=== PATIENT | male | born 1975 | race Two or more races ===

== ENCOUNTER 2020-08-04 15:17 | Inpatient (IN) | payer OTHER ==
[~2020-08-04] VITALS: Ht 198.1 cm; Wt 62.6 kg
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
[2020-08-04 18:00] VITALS: BP 126/90
[2020-08-04] MEDS ORDERED: MAGN400O6 GT (19:20)
[2020-08-04] MEDS ORDERED: POLY15DR40 EACHEYE (19:20)
[2020-08-04] MEDS ORDERED: FAMO20TA8 GT (19:20)
[2020-08-04] MEDS ORDERED: ARFO15VI IH (19:20)
[2020-08-04] MEDS ORDERED: IBUP-1955 GT (19:20)
[2020-08-04] MEDS ORDERED: MELA3TAB41 GT (19:20)
[2020-08-04] MEDS ORDERED: DOCU50LI GT (19:20)
[2020-08-04] MEDS ORDERED: ENOX30DI5 SQ (19:20)
[2020-08-04] MEDS ORDERED: ACET100V4 INH (19:20)
[2020-08-04] MEDS ORDERED: OXYC5CAP18 GT (19:20)
[2020-08-04] MEDS ORDERED: BUDE0.5A4 IH (19:20)
[2020-08-04] MEDS ORDERED: IPRA3AMP23 IH (19:20)
[2020-08-04] MEDS ORDERED: ACET650S26 GT (19:20)
[2020-08-04] MEDS ORDERED: HYDR-4075 GT (19:20)
[2020-08-04] MEDS ORDERED: NALO0.4D4 IV (19:20)
[2020-08-04] MEDS ORDERED: LACT100027 GT (19:22)
[2020-08-04] MEDS ORDERED: PNEUMOCOCCAL 23-VAL P-SAC VAC 0.5 ML VIAL IM ONE (19:30)
[2020-08-04] MEDS ORDERED: JEVITY 1.2 CAL 1,000 ML BOTTLE NG PRN (19:30)
--- NOTE | 2020-08-04 19:45 | NUR ---
RN NOTES Received new orders from Dr. Arita noted and carried out.
[2020-08-04] MEDS ORDERED: POLYVINYL ALCOHOL 15 ML BOTTLE EACHEYE PRN (20:00)
[2020-08-04] MEDS ORDERED: hydrALAZINE HCL 10 MG TABLET GT PRN (20:00)
[2020-08-04] MEDS ORDERED: NALOXONE HCL 0.4 MG/ML AMPUL IV PRN (20:00)
[2020-08-04] MEDS ORDERED: MAGNESIUM HYDROXIDE 30 ML UDC GT PRN (20:00)
[2020-08-04] MEDS ORDERED: ACETAMINOPHEN 650 MG/20 ML UDC- SA PATIENTS-PAIN ONLY GT PRN (20:00)
[2020-08-04] MEDS ORDERED: IBUPROFEN SUSP 100 MG/5 ML UDC-SA PATIENTS-PAIN ONLY GT PRN (20:00)
[2020-08-04] MEDS ORDERED: ACETAMINOPHEN 650 MG/20 ML UDC- SA PATIENTS-FEVER ONLY GT PRN (20:00)
[2020-08-04] MEDS ORDERED: FAMOTIDINE/PF INJ 20 MG/2 ML VIAL IV SCH (21:00)
[2020-08-04] MEDS ORDERED: oxyCODONE IR immediate release 5 MG ONE (21:13)
[2020-08-04] MEDS: FAMOTIDINE (20 MG) 20 MG TABLET GT SCH (21:14)
[2020-08-04] MEDS: ENOXAPARIN SODIUM 40 MG/0.4 ML DISP.SYRIN SQ SCH (21:17)
[2020-08-04] MEDS: oxyCODONE IR immediate release 5 MG GT PRN ×2 (21:18→22:40)
[2020-08-04] MEDS: HYDROGEN PEROXIDE 480 ML BOTTLE TP SCH (21:50)
[2020-08-04] MEDS: ACETYLCYSTEINE 10% SOLN 400 MG/4 ML VIAL HHN SCH (23:49)
[2020-08-05 00:52] VITALS: BP 126/76
[2020-08-05] MEDS: ACETYLCYSTEINE 10% SOLN 400 MG/4 ML VIAL HHN SCH ×5 (03:52→20:28)
--- NOTE | 2020-08-05 06:43 | NUR ---
PT RECEIVED TRACHED W/ PORTEX 7 CUFFED. CUFF DEFLATED. TRACH PATENT AND SECURE. NO SOB OR DISTRESS NOTED ON SHIFT. PMV WAS ON AT START OF SHIFT BUT WAS REMOVED DUE TO NO STANDING ORDERS. ELECTROPLATER APPRENTICE MADE AWARE. CONTINUE CURRENT CARE PLAN AND MONITOR FOR ANY CHANGES. Addendum: 08/05/20 at 0646 by MIRTA WEST RT Amended: Links added.
[2020-08-05 08:03] VITALS: BP 111/80
[2020-08-05] MEDS: BUDESONIDE RESPULE INH 0.5 MG/2 ML AMPUL.NEB NEB SCH ×2 (08:20→20:27)
[2020-08-05] MEDS ORDERED: TUBERCULIN,PURIF.PROT.DERIV. 5 TU/0.1 ML VIAL ID SCH (09:00)
[2020-08-05] MEDS: DOCUSATE SODIUM LIQ 100 MG/10 ML UDC GT SCH ×2 (09:00→16:55)
[2020-08-05] MEDS: HYDROGEN PEROXIDE 480 ML BOTTLE TP SCH ×2 (09:00→21:11)
[2020-08-05] MEDS: FAMOTIDINE (20 MG) 20 MG TABLET GT SCH ×2 (09:00→21:08)
--- NOTE | 2020-08-05 10:30 | NUR ---
Seen by Dr Arita. He spoke with pt's sister via pt's personal cellular phone. Dr Arita said to call Dr William Miller (oral and maxillofacial dentist) to ask if pt needs to come to his office for an appointment. Notified MAVIS Hernandez. Also asked her to call Dr Casey Haskins (orthopedic surgeon).
[2020-08-05] MEDS: oxyCODONE IR immediate release 5 MG GT PRN ×2 (12:40→21:09)
--- NOTE | 2020-08-05 12:48 | NUR ---
PPD injection given on left forearm, lot# [id number], exp 08/06/20, Nirmala Sanofi, pt tolerated well, no bleeding. Patient teaching regarding Gtube care & Gtube medications, all questions and concerns answered.
--- NOTE | 2020-08-05 13:00 | NUR ---
Pt was seen by PT today. PT Will said pt is able to ambulate and sit on a chair. Pt is also able to use the bathroom in his room and clean himself.
[2020-08-05 13:43] VITALS: BP 114/77
[2020-08-05] MEDS ORDERED: NALOXONE HCL 0.4 MG/ML AMPUL IV PRN (14:23)
[2020-08-05] MEDS ORDERED: HYDROGEN PEROXIDE 480 ML BOTTLE TP PRN (14:30)
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
--- NOTE | 2020-08-05 17:01 | NUR ---
Asked pt if he has received the flu and pneumo vaccines. According to him he received the flu vaccine in May 2020, but cannot remember the exact date. Provided him a reading material about the pneumococcal vaccine and he refused to receive it. Offered him the Covid-19 vaccine and provided him a reading material. Also discussed possible side effects with him and number of doses. Pt will think about it.
[2020-08-05] MEDS: ACETAMINOPHEN 650 MG/20 ML UDC- SA PATIENTS-PAIN ONLY GT SCH ×2 (17:28→23:34)
[2020-08-05 20:08] VITALS: BP 119/79
[2020-08-05] MEDS: ENOXAPARIN SODIUM 40 MG/0.4 ML DISP.SYRIN SQ SCH (21:08)
[2020-08-06 01:20] VITALS: BP 117/86
[2020-08-06] MEDS: ACETAMINOPHEN 650 MG/20 ML UDC- SA PATIENTS-PAIN ONLY GT SCH ×4 (06:05→23:44)
[2020-08-06 07:44] VITALS: BP 109/70
[2020-08-06] MEDS: BUDESONIDE RESPULE INH 0.5 MG/2 ML AMPUL.NEB NEB SCH ×2 (08:10→20:14)
[2020-08-06] MEDS: ACETYLCYSTEINE 10% SOLN 400 MG/4 ML VIAL HHN SCH ×3 (08:10→20:14)
[2020-08-06] MEDS: HYDROGEN PEROXIDE 480 ML BOTTLE TP SCH ×2 (09:00→21:27)
[2020-08-06] MEDS: DOCUSATE SODIUM LIQ 100 MG/10 ML UDC GT SCH ×2 (09:00→17:00)
[2020-08-06] MEDS: FAMOTIDINE (20 MG) 20 MG TABLET GT SCH ×2 (09:00→20:24)
--- NOTE | 2020-08-06 10:39 | NUR ---
MAVIS mailed intake paperwork to pt.'s responsible republican/sister, Daniel Morel at [[address] [facility] [address]]. Family to complete paperwork & mail back to MAVIS with prepaid envelope provided.
[2020-08-06 13:24] VITALS: BP 114/76
--- NOTE | 2020-08-06 14:58 | NUR ---
RT NOTE PATIENT EDUCATED PER RT WITH THE FOLLOWING: TRACH MAINTNENCE TRACH CARE TRACHEAL SUCTIONING PATIENT ACKNOWLEDGED RT EDUCATION. RT MENTIONED TO PT IF THEY HAVE ANY QUESTIONS TO ASK ANY RT ON DAY OR NOC SHIFT.
--- NOTE | 2020-08-06 15:58 | NUR ---
Appointments: ---MAVIS called the office of Dentist, William Miller [phone] to set up an apt. as soon as possible. No answer & MAVIS left call back number. ---MAVIS called the office of Orthopedic surgeon, Casey [phone] to set up follow up apt. for Right arm fracture. No answer & MAVIS left call back number. SW will follow up as needed.
--- NOTE | 2020-08-06 16:23 | NUR ---
COVID-19 Vaccine Information Provided: MAVIS emailed the pt,'s sister, Daniel Mejía < > an informational sheet regarding COVID vaccine & attached link to CDC website for family to gather more info about vaccine. SW will be available as needed.
--- NOTE | 2020-08-06 16:52 | NUR ---
Approached resident and asked if he would like to receive Covid-19 vaccine, he said to ask his sister Daniel. Spoke with patient's sister regarding Covid-19 vaccine, she said that they will make a decision after she talk to him today. Endorsed.
--- NOTE | 2020-08-06 18:45 | NUR ---
Notified Dr. Arita of dietary recommendation to increase GT feeding rate of Jevity 1.2 to 80cc/hr x 20 hours. Patient is tall (6'6") and requires more calorie to meet his BMI. According to his sister patient lost a lot of weight at the hospital because they were not able to insert NGT due to his injuries.
[2020-08-06 19:46] VITALS: BP 109/73
[2020-08-06] MEDS ORDERED: JEVITY 1.2 CAL 1,000 ML BOTTLE NG PRN (20:01)
[2020-08-06] MEDS: PROSOURCE / PROSTAT (PYXIS) 30 ML UDC GT SCH (20:24)
[2020-08-06] MEDS: ENOXAPARIN SODIUM 40 MG/0.4 ML DISP.SYRIN SQ SCH (20:24)
[2020-08-06] MEDS: oxyCODONE IR immediate release 5 MG GT PRN (20:26)
--- NOTE | 2020-08-06 22:38 | NUR ---
Pt education on Aspiration precaution. To keep HOB elevated at all times while feeding is on. If receiving Bolus feeding to sit up right and to not lay down a minimum of 30 mins after feeding to prevent aspiration. Also demonstrated to pt how to disconnect GTF tubing from GT. Pt receptive to demonstration and demonstrated back safely. Also educated pt on safety in transfers from bed. To stand up slowly and sit up first at side of bed to prevent orthostatic hypotention. Pt receptive to teachings.
[2020-08-06 23:58] VITALS: BP 115/85
[2020-08-07] MEDS: ACETAMINOPHEN 650 MG/20 ML UDC- SA PATIENTS-PAIN ONLY GT SCH ×4 (05:57→23:54)
[2020-08-07] MEDS: ACETYLCYSTEINE 10% SOLN 400 MG/4 ML VIAL HHN SCH ×4 (08:16→19:41)
[2020-08-07] MEDS: BUDESONIDE RESPULE INH 0.5 MG/2 ML AMPUL.NEB NEB SCH ×2 (08:16→20:20)
[2020-08-07] MEDS ORDERED: PROSTAT (PYXIS) 30 ML UDC GT SCH (09:00)
[2020-08-07] MEDS ORDERED: PROSOURCE / PROSTAT (PYXIS) 30 ML UDC GT SCH (09:00)
--- NOTE | 2020-08-07 09:09 | NUR ---
Pt's sister Daniel called to say that she and the pt discussed the Covid-19 vaccine. She said her brother wants to receive it and they both agreed that it will be beneficial for him.
[2020-08-07] MEDS: DOCUSATE SODIUM LIQ 100 MG/10 ML UDC GT SCH ×2 (09:49→17:00)
[2020-08-07] MEDS: PROSOURCE / PROSTAT (PYXIS) 30 ML UDC GT SCH ×2 (09:50→17:00)
[2020-08-07] MEDS: FAMOTIDINE (20 MG) 20 MG TABLET GT SCH ×2 (09:50→21:17)
--- NOTE | 2020-08-07 10:15 | NUR ---
Follow up Apt. for Oral Surgery: MAVIS called office of William Miller DDS [phone] [[address] [facility] [address]] and set up follow up apt. for 08/14/2020 11 am. MAVIS called the [facility] [phone] and spoke to Coordinator, Ania to set up transportation for pt.'s apt. (stated above). Ania to set up transport & update MAIVS with transport details.
[2020-08-07] MEDS: HYDROGEN PEROXIDE 480 ML BOTTLE TP SCH ×2 (10:21→19:41)
--- NOTE | 2020-08-07 10:22 | NUR ---
SS Note: MAVIS made another call to the office of Orthopedic surgeon, Casey Haskins [phone] to set up follow up apt. for Right arm fracture. No answer & MAVIS left call back number. SW will follow up as needed.
[2020-08-07] MEDS ORDERED: COVID-19 VACC,MRNA(MODERNA) 100 MCG/0.5 ML IM ONE (11:00)
--- NOTE | 2020-08-07 11:23 | NUR ---
Moderna Covid-19 vaccine administered on pt's left deltoid, tolerated well.
--- NOTE | 2020-08-07 11:29 | NUR ---
Family Invite to IDT: SW emailed the pt.'s sister, Daniel Mejía inviting them to participate in 08/08/2020 IDT Meeting. MAVIS will follow up accordingly.
--- NOTE | 2020-08-07 11:43 | NUR ---
MAVIS Hernandez said she arranged for an appointment with Dr William Miller (oral and maxillofacial dentis) on 08/14/20 at 1100 am. Addendum: 08/07/20 at 1814 by ALEXYS FIELD RN Notified pt's sister Daniel.
[2020-08-07 11:45] VITALS: BP 111/74
--- NOTE | 2020-08-07 11:55 | NUR ---
Facility Update: MAVIS emailed the pt.'s sister, Daniel Mejía informing her that: "[facility] or [facility] positive for COVID-19 this week. As recommended by [facility], all Sub-Acute residents & healthcare personnel will continue receiving surveillance testing. [facility] continues to follow infection control protocols and screen our residents and staff daily for symptoms.
[2020-08-07 14:20] VITALS: BP 120/72
[2020-08-07] MEDS: oxyCODONE IR immediate release 5 MG GT PRN ×2 (15:05→21:47)
--- NOTE | 2020-08-07 17:00 | NUR ---
Received order to DC Jevity 1.2 at 80 mL/hr and change to bolus GT feeding Jevity 265 mL q 4 hours. Notified pt's sister.
--- NOTE | 2020-08-07 17:20 | NUR ---
RT NOTE EDUCATION Patient was further educated about suctionini Addendum: 08/07/20 at 1732 by DARREN DOLAN RT RT NOTE EDUCATION Patient was further educated about tracheal suctioning and RT let the patient do it himself. Patient is still hesitant to do it himself further encouragement and education is needed to build confidence in PT's own ability to suction himself. PT's sister should also be educated in trach care to further help PT at home.
--- NOTE | 2020-08-07 18:09 | NUR ---
Pt received Moderna Covid-19 vaccine today, no adverse signs and symptoms noted. Pt's sister aware.
[2020-08-07 18:14] LABS: HEMOGLOBIN 11.1 g/dL (13.5-17.5)
[2020-08-07 18:20] LABS: BASOPHILS % (AUTO) 0.4 % (0.0-2.0); EOSINOPHILS % (AUTO) 0.9 % (0.0-6.0); HEMATOCRIT 34 % (39-51); LYMPHOCYTES # (AUTO) 1.1 /CMM (0.8-4.8); LYMPHOCYTES % (AUTO) 8.8 % (20.0-44.0); MEAN CORPUSCULAR HGB CONC 32 g/dl (31.0-36.0); MEAN CORPUSCULAR VOLUME 78 fL (80-96); MONOCYTES # (AUTO) 0.9 /CMM (0.1-1.30); MONOCYTES % (AUTO) 7.2 % (2.0-12.0); NEUTROPHILS # (AUTO) 10.8 /CMM (1.8-8.9); NEUTROPHILS % (AUTO) 82.7 % (43.0-81.0); PLATELET COUNT (AUTO) 238 /CMM (150-450); RED BLOOD CELL COUNT(AUTO) 4.39 MIL/uL (4.5-6.0)
[2020-08-07] MEDS: JEVITY 1.2 CAL 1,000 ML BOTTLE GT SCH ×2 (18:30→22:00)
[2020-08-07 18:32] LABS: CALCIUM, SERUM 9.2 mg/dL (8.5-10.1); POTASSIUM 4.2 mmol/L (3.5-5.1)
--- NOTE | 2020-08-07 18:37 | NUR ---
Pt complained of headache and feeling tired. Explained to him that it might be the side effects from the Covid vaccine he received today. Pt's sister concerned that pt's BP might be high. Checked pt's BP. BP 115/74 HR 85 T 97.7 F. Tylenol given.
[2020-08-07 19:33] VITALS: BP 110/58
[2020-08-07] MEDS: IPRATROPIUM NEB FS 0.5 MG/2.5 ML AMPUL.NEB NEB PRN (19:41)
[2020-08-07] MEDS: ALBUTEROL FS 2.5 MG/3 ML VIAL.NEB NEB PRN (19:41)
[2020-08-07] MEDS: ENOXAPARIN SODIUM 40 MG/0.4 ML DISP.SYRIN SQ SCH (21:18)
[2020-08-07 23:56] VITALS: BP 111/70
[2020-08-08] MEDS: JEVITY 1.2 CAL 1,000 ML BOTTLE GT SCH ×6 (02:50→22:03)
[2020-08-08] MEDS: ACETAMINOPHEN 650 MG/20 ML UDC- SA PATIENTS-PAIN ONLY GT SCH ×3 (05:45→18:37)
--- NOTE | 2020-08-08 05:58 | NUR ---
Post Moderna Covid vaccination,afebrile,patient complained of head ache Tylenol given.Will continue to monitor.
[2020-08-08] MEDS: IPRATROPIUM NEB FS 0.5 MG/2.5 ML AMPUL.NEB NEB PRN ×3 (07:34→15:47)
[2020-08-08] MEDS: ALBUTEROL FS 2.5 MG/3 ML VIAL.NEB NEB PRN ×4 (07:34→20:13)
[2020-08-08] MEDS: BUDESONIDE RESPULE INH 0.5 MG/2 ML AMPUL.NEB NEB SCH ×2 (07:34→20:11)
[2020-08-08] MEDS: ACETYLCYSTEINE 10% SOLN 400 MG/4 ML VIAL HHN SCH ×4 (07:34→20:10)
[2020-08-08 07:46] VITALS: BP 104/73
[2020-08-08] MEDS: HYDROGEN PEROXIDE 480 ML BOTTLE TP SCH ×2 (08:43→20:12)
[2020-08-08] MEDS: DOCUSATE SODIUM LIQ 100 MG/10 ML UDC GT SCH ×2 (09:41→17:00)
[2020-08-08] MEDS: PROSOURCE / PROSTAT (PYXIS) 30 ML UDC GT SCH ×2 (09:50→17:00)
[2020-08-08] MEDS: FAMOTIDINE (20 MG) 20 MG TABLET GT SCH ×2 (09:50→21:24)
[2020-08-08] MEDS: oxyCODONE IR immediate release 5 MG GT PRN ×2 (10:14→19:46)
--- NOTE | 2020-08-08 14:28 | NUR ---
SS Note: MAVIS made another call to the office of Orthopedic surgeon, Casey Haskins [phone] to set up follow up apt. for Right arm fracture. No answer & MAVIS left call back number. SW will follow up as needed.
--- NOTE | 2020-08-08 14:32 | NUR ---
Initial Discharge Plan: MAVIS called the pt.'s sister, Daniel Mejía [phone] to engage family in D/C planning. Per Family, they are looking to find him an another apartment under the same landlord but different building/ location for pt.'s safety. Per Daniel, if that is not possible by the time he is ready for discharge, she is willing to have the pt. reside with her in her home [[address] [place] [facility] [address]]. Noted. MAVIS emailed Daniel <[email or web address]> the application for In-Home Supportive services for caregiving services when pt. is discharged. Daniel is agreeable to plan and stated she will apply ADRIAN. MAVIS will continue to collaborate with Interdisciplinary team, family & pt. for a safe & proper discharge plan.
--- NOTE | 2020-08-08 14:50 | NUR ---
MAVIS faxed note detailing pt.'s appointment with Dr. William Miller (oral & maxillofacial dentist) on 08/14/2020 11 am to [facility] tel:[phone] to transportation prior authorization.
--- NOTE | 2020-08-08 16:05 | NUR ---
INTERDISCIPLINARY PLAN OF CARE CONFERENCE took place today. The patients sister, Daniel Mejía [phone] Carson and Interdisciplinary team discussed the plan of care in detail. Current orders as well as treatments and medications were reviewed. Charge Nurse discussed pt. received first dose of Moderna vaccine on 08/07/2020. See other disciplines IDT notes for further details.
--- NOTE | 2020-08-08 18:59 | NUR ---
Patient no complain of pain or discomfort re post covid vaccine admistered at left deltoid
[2020-08-08 19:55] VITALS: BP 103/67
[2020-08-08] MEDS: ENOXAPARIN SODIUM 40 MG/0.4 ML DISP.SYRIN SQ SCH (21:24)
--- NOTE | 2020-08-08 22:00 | NUR ---
Health teachings provided to patient regarding gt bolus feeding ,he needs his head elevated 30 degrees or more prior to administration of formula,water and medications.Teaches also how to take care of the gt site. Encouraged also to learn how to suction himself with RT supervision. Will continue to provide teachings until patient is comfortable doing it.Preparing patient for discharge.
[2020-08-08 23:54] VITALS: BP 110/60
[2020-08-09] MEDS: ACETAMINOPHEN 650 MG/20 ML UDC- SA PATIENTS-PAIN ONLY GT SCH ×5 (00:23→23:45)
[2020-08-09] MEDS: JEVITY 1.2 CAL 1,000 ML BOTTLE GT SCH ×6 (02:00→21:31)
[2020-08-09] MEDS: oxyCODONE IR immediate release 5 MG GT PRN ×2 (04:38→15:05)
--- NOTE | 2020-08-09 05:54 | NUR ---
S/p Moderna covid vaccination monitoring ,patient remains afebrile,no other symptoms.Will continue to monitor.
[2020-08-09] MEDS: ACETYLCYSTEINE 10% SOLN 400 MG/4 ML VIAL HHN SCH ×4 (08:10→20:56)
[2020-08-09] MEDS: BUDESONIDE RESPULE INH 0.5 MG/2 ML AMPUL.NEB NEB SCH ×2 (08:10→21:05)
[2020-08-09] MEDS: IPRATROPIUM NEB FS 0.5 MG/2.5 ML AMPUL.NEB NEB PRN ×2 (08:11→20:56)
[2020-08-09] MEDS: ALBUTEROL FS 2.5 MG/3 ML VIAL.NEB NEB PRN ×3 (08:11→20:56)
[2020-08-09] MEDS: FAMOTIDINE (20 MG) 20 MG TABLET GT SCH ×2 (09:00→20:31)
[2020-08-09] MEDS: HYDROGEN PEROXIDE 480 ML BOTTLE TP SCH ×2 (09:00→20:56)
[2020-08-09] MEDS: DOCUSATE SODIUM LIQ 100 MG/10 ML UDC GT SCH ×2 (09:00→17:40)
[2020-08-09] MEDS: PROSOURCE / PROSTAT (PYXIS) 30 ML UDC GT SCH ×2 (09:00→17:40)
--- NOTE | 2020-08-09 12:21 | NUR ---
RT NOTE PATIENT SHOWED AND TAUGHT HOW TO PERFORM TRACHEAL SUCTION, AND TRACH CARE. PATIENT ABLE TO UNDERSTAND AND PERFORM BACK TRACHEAL SUCTION ON HIMSELF. NEEDS MORE TRAINING WITH TRACH CARE. SAMPLE TRACH GIVEN TO PATIENT IN ORDER TO PRACTICE TRACH CARE. NURSE AWARE.
[2020-08-09 18:44] VITALS: BP 120/66
[2020-08-09 18:48] VITALS: BP 133/73
--- NOTE | 2020-08-09 19:23 | NUR ---
Patient awake alert and able to transfer from bed to the chair with assist. S/P moderna covid vaccination with no A/R noted. afebrile. patient communicate thru action. Health teachings done regarding Gt feeding administration . medication administration taught and demonstrated. Patient interested in the health teachings.
[2020-08-09 20:16] VITALS: BP 114/72
[2020-08-09] MEDS: ENOXAPARIN SODIUM 40 MG/0.4 ML DISP.SYRIN SQ SCH (20:33)
[2020-08-09 23:42] VITALS: BP 101/68
[2020-08-10] MEDS: oxyCODONE IR immediate release 5 MG GT PRN ×2 (01:44→20:42)
[2020-08-10] MEDS: JEVITY 1.2 CAL 1,000 ML BOTTLE GT SCH ×6 (02:00→21:03)
[2020-08-10] MEDS: ACETAMINOPHEN 650 MG/20 ML UDC- SA PATIENTS-PAIN ONLY GT SCH ×3 (05:21→17:38)
[2020-08-10] MEDS: BUDESONIDE RESPULE INH 0.5 MG/2 ML AMPUL.NEB NEB SCH ×2 (07:30→19:30)
--- NOTE | 2020-08-10 08:00 | NUR ---
Seen and examined by Dr. Arita, no new order given.
[2020-08-10] MEDS: ACETYLCYSTEINE 10% SOLN 400 MG/4 ML VIAL HHN SCH ×4 (08:14→19:51)
[2020-08-10] MEDS: HYDROGEN PEROXIDE 480 ML BOTTLE TP SCH ×2 (08:14→21:43)
[2020-08-10] MEDS: ALBUTEROL FS 2.5 MG/3 ML VIAL.NEB NEB PRN (08:14)
[2020-08-10] MEDS: FAMOTIDINE (20 MG) 20 MG TABLET GT SCH ×2 (09:00→20:11)
[2020-08-10] MEDS: PROSOURCE / PROSTAT (PYXIS) 30 ML UDC GT SCH ×2 (09:00→17:37)
[2020-08-10] MEDS: DOCUSATE SODIUM LIQ 100 MG/10 ML UDC GT SCH ×2 (09:00→17:37)
[2020-08-10 09:02] VITALS: BP 105/69
--- NOTE | 2020-08-10 15:36 | NUR ---
RT NOTE PATIENT SHOWED AND TAUGHT HOW TO PERFORM TRACHEAL SUCTION, AND TRACH CARE. PATIENT ABLE TO UNDERSTAND AND PERFORM BACK TRACHEAL SUCTION ON HIMSELF. NEEDS MORE TRAINING WITH TRACH CARE. NURSE AWARE.
[2020-08-10 16:21] VITALS: BP 111/70
[2020-08-10 19:34] VITALS: BP 121/75
[2020-08-10 19:36] VITALS: BP 121/75
[2020-08-10] MEDS: ENOXAPARIN SODIUM 40 MG/0.4 ML DISP.SYRIN SQ SCH (20:12)
[2020-08-11] MEDS: ACETAMINOPHEN 650 MG/20 ML UDC- SA PATIENTS-PAIN ONLY GT SCH ×5 (00:03→23:54)
[2020-08-11 00:14] VITALS: BP 118/70
[2020-08-11] MEDS: JEVITY 1.2 CAL 1,000 ML BOTTLE GT SCH ×6 (02:00→21:11)
[2020-08-11] MEDS: oxyCODONE IR immediate release 5 MG GT PRN ×3 (03:10→21:12)
[2020-08-11] MEDS: BUDESONIDE RESPULE INH 0.5 MG/2 ML AMPUL.NEB NEB SCH ×2 (07:30→20:38)
[2020-08-11 07:32] VITALS: BP 117/69
[2020-08-11] MEDS: ACETYLCYSTEINE 10% SOLN 400 MG/4 ML VIAL HHN SCH ×4 (08:20→20:16)
[2020-08-11] MEDS: IPRATROPIUM NEB FS 0.5 MG/2.5 ML AMPUL.NEB NEB PRN ×2 (08:23→20:16)
[2020-08-11] MEDS: ALBUTEROL FS 2.5 MG/3 ML VIAL.NEB NEB PRN (08:24)
[2020-08-11] MEDS: HYDROGEN PEROXIDE 480 ML BOTTLE TP SCH ×2 (09:10→21:00)
[2020-08-11] MEDS: DOCUSATE SODIUM LIQ 100 MG/10 ML UDC GT SCH ×2 (09:53→17:00)
[2020-08-11] MEDS: FAMOTIDINE (20 MG) 20 MG TABLET GT SCH ×2 (09:53→21:10)
[2020-08-11] MEDS: PROSOURCE / PROSTAT (PYXIS) 30 ML UDC GT SCH ×2 (09:53→17:00)
--- NOTE | 2020-08-11 11:10 | NUR ---
Clinicals: MAVIS faxed clinicals to the [facility] Attention to Valeri/Ania.
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
--- NOTE | 2020-08-11 13:54 | NUR ---
Called lab extension [phone] to follow up COVID test that was done on 08/05/20, spoke with Elijah he said result still pending due to issue with [facility]. Informed him to follow up and to let us know of the result
--- NOTE | 2020-08-11 14:24 | NUR ---
Pt was asking for a warm compress for his back discomfort. Notified CABLE LAYER Carmela Villela. She ordered warm compress for 15 minutes q 6 PRN for back pain/discomfort.
[2020-08-11 14:31] VITALS: BP 105/72
[2020-08-11 19:52] VITALS: BP 107/60
[2020-08-11] MEDS: ENOXAPARIN SODIUM 40 MG/0.4 ML DISP.SYRIN SQ SCH (21:11)
[2020-08-12 00:18] VITALS: BP 110/70
[2020-08-12] MEDS: JEVITY 1.2 CAL 1,000 ML BOTTLE GT SCH ×6 (01:53→21:32)
[2020-08-12] MEDS: oxyCODONE IR immediate release 5 MG GT PRN ×3 (01:54→20:14)
[2020-08-12] MEDS: ACETAMINOPHEN 650 MG/20 ML UDC- SA PATIENTS-PAIN ONLY GT SCH ×4 (05:50→23:58)
--- NOTE | 2020-08-12 05:53 | NUR ---
Reinforced education on bolus feeding with Jevity1.2 q 4hrs. Demonstrated to pt flushing with water 30 cc prior to bolus feeding and after bolus feeding to prevent GT clogging. Pt was able to demonstrate back feeding self with jevity bolus feeding and flushing. Educated on aspiration precautions. To always sit up right and to not lay down for 30 mins to prevent aspiration. Pt receptive to teachings and demonstrated back. Will continue education for preparation of discharge.
[2020-08-12 07:23] VITALS: BP 106/68
[2020-08-12] MEDS: BUDESONIDE RESPULE INH 0.5 MG/2 ML AMPUL.NEB NEB SCH ×2 (07:30→20:50)
[2020-08-12] MEDS: ACETYLCYSTEINE 10% SOLN 400 MG/4 ML VIAL HHN SCH ×4 (07:35→20:50)
[2020-08-12] MEDS: FAMOTIDINE (20 MG) 20 MG TABLET GT SCH ×2 (09:00→20:13)
[2020-08-12] MEDS: DOCUSATE SODIUM LIQ 100 MG/10 ML UDC GT SCH ×2 (09:00→17:00)
[2020-08-12] MEDS: PROSOURCE / PROSTAT (PYXIS) 30 ML UDC GT SCH ×2 (09:00→17:00)
[2020-08-12] MEDS: HYDROGEN PEROXIDE 480 ML BOTTLE TP SCH ×2 (09:11→20:50)
[2020-08-12] MEDS: IPRATROPIUM NEB FS 0.5 MG/2.5 ML AMPUL.NEB NEB PRN (09:12)
[2020-08-12] MEDS: ALBUTEROL FS 2.5 MG/3 ML VIAL.NEB NEB PRN (12:20)
[2020-08-12 13:48] VITALS: BP 110/66
--- NOTE | 2020-08-12 17:35 | NUR ---
Called lab to ask for the Covid result of the test done on 08/05/20. Spoke with Mariela. She said she will follow up on it.
--- NOTE | 2020-08-12 18:53 | NUR ---
Health teachings imparted to the patient. Demonstrated and instructed on the GT feeding by checking the residuals and placement then flush GT with 30 ml. of water before and after the feeding. proper positioning should be observed by sitting up straight to prevent aspiration and to introduce the bolus feeding slowly and by gravity. Patient able to follow the demonstration and able to do the procedure. will continue the health teachings in preparation for patient's discharge.
[2020-08-12 20:02] VITALS: BP 106/66
[2020-08-12] MEDS: ENOXAPARIN SODIUM 40 MG/0.4 ML DISP.SYRIN SQ SCH (20:13)
[2020-08-13 00:13] VITALS: BP 110/65
[2020-08-13] MEDS: JEVITY 1.2 CAL 1,000 ML BOTTLE GT SCH ×6 (02:00→21:04)
[2020-08-13] MEDS: oxyCODONE IR immediate release 5 MG GT PRN ×3 (02:33→21:05)
[2020-08-13] MEDS: ACETAMINOPHEN 650 MG/20 ML UDC- SA PATIENTS-PAIN ONLY GT SCH ×4 (05:40→23:54)
[2020-08-13] MEDS: ACETYLCYSTEINE 10% SOLN 400 MG/4 ML VIAL HHN SCH ×4 (07:36→19:24)
[2020-08-13] MEDS: BUDESONIDE RESPULE INH 0.5 MG/2 ML AMPUL.NEB NEB SCH ×2 (07:36→19:54)
[2020-08-13 07:37] VITALS: BP 105/62
[2020-08-13] MEDS: HYDROGEN PEROXIDE 480 ML BOTTLE TP SCH ×2 (08:38→19:25)
[2020-08-13] MEDS: FAMOTIDINE (20 MG) 20 MG TABLET GT SCH ×2 (09:00→21:04)
[2020-08-13] MEDS: DOCUSATE SODIUM LIQ 100 MG/10 ML UDC GT SCH ×2 (09:00→17:00)
[2020-08-13] MEDS: PROSOURCE / PROSTAT (PYXIS) 30 ML UDC GT SCH ×2 (09:00→17:00)
--- NOTE | 2020-08-13 09:17 | NUR ---
Transport to Dental follow up: MAVIS set up SCT with Nadine for pt. to be picked up 9:30 AM ON 08/14/2020 for 11 am appointment with William Miller DDS [[address], [address] [facility] [address] ]
--- NOTE | 2020-08-13 09:41 | NUR ---
Clinicals: MAVIS faxed clinicals to Viktoria Jorge at [facility] FAX: [phone] TEL:[phone].
[2020-08-13 13:37] VITALS: BP 115/68
[2020-08-13] MEDS: IPRATROPIUM NEB FS 0.5 MG/2.5 ML AMPUL.NEB NEB PRN (19:25)
[2020-08-13] MEDS: ALBUTEROL FS 2.5 MG/3 ML VIAL.NEB NEB PRN (19:25)
[2020-08-13 19:53] VITALS: BP 102/64
[2020-08-13] MEDS: ENOXAPARIN SODIUM 40 MG/0.4 ML DISP.SYRIN SQ SCH (21:04)
[2020-08-14 00:23] VITALS: BP 110/70
[2020-08-14] MEDS: JEVITY 1.2 CAL 1,000 ML BOTTLE GT SCH ×6 (02:00→21:30)
[2020-08-14] MEDS: oxyCODONE IR immediate release 5 MG GT PRN ×4 (02:20→22:17)
[2020-08-14] MEDS: ACETAMINOPHEN 650 MG/20 ML UDC- SA PATIENTS-PAIN ONLY GT SCH ×4 (05:09→23:28)
[2020-08-14] MEDS: ACETYLCYSTEINE 10% SOLN 400 MG/4 ML VIAL HHN SCH ×4 (07:25→19:45)
[2020-08-14] MEDS: BUDESONIDE RESPULE INH 0.5 MG/2 ML AMPUL.NEB NEB SCH ×2 (07:25→19:45)
[2020-08-14 07:32] VITALS: BP 108/63
[2020-08-14] MEDS: HYDROGEN PEROXIDE 480 ML BOTTLE TP SCH ×2 (09:14→19:45)
[2020-08-14] MEDS: PROSOURCE / PROSTAT (PYXIS) 30 ML UDC GT SCH ×2 (09:21→17:00)
[2020-08-14] MEDS: FAMOTIDINE (20 MG) 20 MG TABLET GT SCH ×2 (09:21→20:30)
[2020-08-14] MEDS: DOCUSATE SODIUM LIQ 100 MG/10 ML UDC GT SCH ×2 (09:21→17:00)
--- NOTE | 2020-08-14 09:40 | NUR ---
Pt was picked up by [facility] for his appointment with oral and maxillofacial dentist Dr William Miller. Pt in stable condition. Report given to RT. Jaw wire cutters and instructions sent with pt, endorsed to RT.
--- NOTE | 2020-08-14 11:26 | NUR ---
Patient treatment not given due to patient out of the faclility for an appointment.
--- NOTE | 2020-08-14 12:40 | NUR ---
Pt back from appointment with Dr Miller. Pt needs to follow up with him in [address] Miller ordered hot oral solution rinses QID. Notified MAVIS Hernandez. Addendum: 08/14/20 at 1243 by ALEXYS FIELD RN Also notified Daniel. She said she met the pt at Dr Miller's office. Addendum: 08/14/20 at 1308 by ALEXYS FIELD RN Hot oral saline rinses QID
[2020-08-14 13:49] VITALS: BP 113/68
[2020-08-14] MEDS: ALBUTEROL FS 2.5 MG/3 ML VIAL.NEB NEB PRN (19:45)
[2020-08-14] MEDS: IPRATROPIUM NEB FS 0.5 MG/2.5 ML AMPUL.NEB NEB PRN (19:45)
[2020-08-14 19:58] VITALS: BP 110/74
[2020-08-14] MEDS: ENOXAPARIN SODIUM 40 MG/0.4 ML DISP.SYRIN SQ SCH (20:31)
[2020-08-14] MEDS: MELATONIN 3MG GT PRN (20:59)
[2020-08-14] MEDS: IBUPROFEN SUSP 100 MG/5 ML UDC-SA PATIENTS-PAIN ONLY GT PRN (21:00)
[2020-08-15 01:00] VITALS: BP 97/69
[2020-08-15] MEDS: JEVITY 1.2 CAL 1,000 ML BOTTLE GT SCH ×6 (01:55→21:22)
[2020-08-15] MEDS: ACETAMINOPHEN 650 MG/20 ML UDC- SA PATIENTS-PAIN ONLY GT SCH ×4 (05:23→23:14)
--- NOTE | 2020-08-15 05:57 | NUR ---
Pt remains stable and afebrile, able to make his needs known, mostly independent , GT- Feeding, Water flushes, meds and Txs given as ordered and tolerated well. Educated pt verbally about medication administration of Lovenox - to wash hands with soap and water, and dry thoroughly, sit or lie in a comfortable position so that he can see his abdomen, clean site with alcohol pads let air dry prior to administering the Lovenox- inject to left or right side of abdomen at least 2 inches away from belly button, and remember to ROTATE site of injection and NOT to massage the injected sites, DISCARD SYRINGE to sharps container- pt "nodded understanding". Needs re-enforcement - and encouragement.
[2020-08-15] MEDS: BUDESONIDE RESPULE INH 0.5 MG/2 ML AMPUL.NEB NEB SCH ×2 (07:30→19:30)
[2020-08-15 07:32] VITALS: BP 111/66
[2020-08-15] MEDS: ACETYLCYSTEINE 10% SOLN 400 MG/4 ML VIAL HHN SCH ×4 (07:35→19:30)
[2020-08-15] MEDS: HYDROGEN PEROXIDE 480 ML BOTTLE TP SCH ×2 (08:36→21:00)
[2020-08-15] MEDS: FAMOTIDINE (20 MG) 20 MG TABLET GT SCH ×2 (09:42→20:31)
[2020-08-15] MEDS: DOCUSATE SODIUM LIQ 100 MG/10 ML UDC GT SCH ×2 (09:42→17:53)
[2020-08-15] MEDS: PROSOURCE / PROSTAT (PYXIS) 30 ML UDC GT SCH ×2 (09:42→17:53)
[2020-08-15] MEDS: oxyCODONE IR immediate release 5 MG GT PRN ×3 (10:49→23:15)
[2020-08-15 12:00] VITALS: BP 115/72
[2020-08-15 12:17] VITALS: BP 115/72
--- NOTE | 2020-08-15 15:36 | NUR ---
SS Note: MAVIS called the office of Dr. Miller [phone] and requested progress notes of pt.'s last visit to be faxed to [phone]. MAVIS left call back number and nursing station call back number. MAVIS will follow up accordingly.
--- NOTE | 2020-08-15 16:28 | NUR ---
Facility Update: MAVIS emailed the pt.'s sister, Daniel Mejía [phone] informing her that: "No [facility] Sub-Acute residents or employees tested positive for COVID-19 this week. As recommended by [facility], all Sub-Acute residents & healthcare personnel will continue receiving surveillance testing. [facility] continues to follow infection control protocols and screen our residents and staff daily for symptoms.
[2020-08-15 18:00] VITALS: BP 110/72
[2020-08-15 20:09] VITALS: BP 99/57
[2020-08-15] MEDS: ENOXAPARIN SODIUM 40 MG/0.4 ML DISP.SYRIN SQ SCH (20:32)
[2020-08-15] MEDS: MELATONIN 3MG GT PRN (23:15)
[2020-08-16] VITALS (8 sets, daily range): BP systolic 102–120; BP diastolic 53–88
[2020-08-16] MEDS: JEVITY 1.2 CAL 1,000 ML BOTTLE GT SCH ×6 (02:00→21:08)
[2020-08-16] MEDS: IBUPROFEN SUSP 100 MG/5 ML UDC-SA PATIENTS-PAIN ONLY GT PRN (02:30)
[2020-08-16] MEDS: oxyCODONE IR immediate release 5 MG GT PRN ×4 (04:51→21:17)
[2020-08-16] MEDS: ACETAMINOPHEN 650 MG/20 ML UDC- SA PATIENTS-PAIN ONLY GT SCH ×4 (05:18→23:15)
[2020-08-16] MEDS: ACETYLCYSTEINE 10% SOLN 400 MG/4 ML VIAL HHN SCH ×4 (07:33→19:35)
[2020-08-16] MEDS: BUDESONIDE RESPULE INH 0.5 MG/2 ML AMPUL.NEB NEB SCH ×2 (07:33→19:35)
[2020-08-16] MEDS: PROSOURCE / PROSTAT (PYXIS) 30 ML UDC GT SCH ×2 (09:11→17:17)
[2020-08-16] MEDS: DOCUSATE SODIUM LIQ 100 MG/10 ML UDC GT SCH ×2 (09:11→17:17)
[2020-08-16] MEDS: FAMOTIDINE (20 MG) 20 MG TABLET GT SCH ×2 (09:14→20:33)
--- NOTE | 2020-08-16 10:30 | NUR ---
Left a message to Dr. Arita regarding patient's request to have a Lidocaine patch for his lower back pain. According to patient the Oxy IR is not helping that much. Awaiting for response.
--- NOTE | 2020-08-16 11:30 | NUR ---
Received a call from patient's sister relating patient's complain of pain in his lower back. According to Daniel, her brother also requesting muscle relaxant aside from the patch he is requesting earlier. Left a follow-up message to Dr. Nuñez regarding patient's complain of pain. According to patient, his pain level is 5/10 despite OxyIR. New order received from Dr. Arita to give Lidocaine 5% and Flexeril 10 mg. to be given q 8 hours. Order carried out. Resident informed.
[2020-08-16] MEDS: LIDOCAINE 5% (PATCH) 1 EA PATCH TP SCH (15:18)
[2020-08-16] MEDS: HYDROGEN PEROXIDE 480 ML BOTTLE TP SCH ×2 (16:56→19:35)
--- NOTE | 2020-08-16 18:00 | NUR ---
During rounds resident verbalized his pain is much better with Lidocaine patch. Patient also receiving warm compress for his back pain.
[2020-08-16] MEDS: IPRATROPIUM NEB FS 0.5 MG/2.5 ML AMPUL.NEB NEB PRN (19:35)
[2020-08-16] MEDS: ALBUTEROL FS 2.5 MG/3 ML VIAL.NEB NEB PRN (19:35)
[2020-08-16] MEDS ORDERED: CYCLOBENZAPRINE 10 MG TABLET ONE (19:42)
[2020-08-16] MEDS: CYCLOBENZAPRINE 10 MG TABLET GT SCH (20:33)
[2020-08-16] MEDS: ENOXAPARIN SODIUM 40 MG/0.4 ML DISP.SYRIN SQ SCH (20:33)
[2020-08-17] VITALS (8 sets, daily range): BP systolic 102–125; BP diastolic 51–81
[2020-08-17] MEDS: JEVITY 1.2 CAL 1,000 ML BOTTLE GT SCH ×6 (01:53→21:58)
[2020-08-17] MEDS: oxyCODONE IR immediate release 5 MG GT PRN ×4 (03:35→20:13)
[2020-08-17] MEDS: CYCLOBENZAPRINE 10 MG TABLET GT SCH ×3 (04:56→20:08)
[2020-08-17] MEDS: ACETAMINOPHEN 650 MG/20 ML UDC- SA PATIENTS-PAIN ONLY GT SCH ×3 (05:09→17:30)
[2020-08-17] MEDS: ACETYLCYSTEINE 10% SOLN 400 MG/4 ML VIAL HHN SCH ×4 (08:48→19:48)
[2020-08-17] MEDS: BUDESONIDE RESPULE INH 0.5 MG/2 ML AMPUL.NEB NEB SCH ×2 (08:48→19:30)
[2020-08-17] MEDS: ALBUTEROL FS 2.5 MG/3 ML VIAL.NEB NEB PRN ×2 (08:49→19:48)
[2020-08-17] MEDS: IPRATROPIUM NEB FS 0.5 MG/2.5 ML AMPUL.NEB NEB PRN ×2 (08:49→19:48)
[2020-08-17] MEDS: FAMOTIDINE (20 MG) 20 MG TABLET GT SCH ×2 (09:00→20:08)
[2020-08-17] MEDS ORDERED: LIDOCAINE 5% (PATCH) 1 EA PATCH TP SCH (09:00)
[2020-08-17] MEDS: DOCUSATE SODIUM LIQ 100 MG/10 ML UDC GT SCH ×2 (09:00→17:18)
[2020-08-17] MEDS: LIDOCAINE 5% (PATCH) 1 EA PATCH TP SCH (09:00)
[2020-08-17] MEDS: PROSOURCE / PROSTAT (PYXIS) 30 ML UDC GT SCH ×2 (09:00→17:18)
[2020-08-17] MEDS: HYDROGEN PEROXIDE 480 ML BOTTLE TP SCH ×2 (09:04→19:48)
[2020-08-17] MEDS: ENOXAPARIN SODIUM 40 MG/0.4 ML DISP.SYRIN SQ SCH (20:08)
[2020-08-17] MEDS: MELATONIN 3MG GT PRN (20:12)
[2020-08-18] VITALS (8 sets, daily range): BP systolic 100–126; BP diastolic 62–82
[2020-08-18] MEDS: ACETAMINOPHEN 650 MG/20 ML UDC- SA PATIENTS-PAIN ONLY GT SCH ×4 (00:08→17:03)
[2020-08-18] MEDS: oxyCODONE IR immediate release 5 MG GT PRN ×3 (02:26→19:05)
[2020-08-18] MEDS: JEVITY 1.2 CAL 1,000 ML BOTTLE GT SCH ×6 (02:32→20:16)
[2020-08-18] MEDS: CYCLOBENZAPRINE 10 MG TABLET GT SCH ×3 (05:31→20:16)
[2020-08-18] MEDS: BUDESONIDE RESPULE INH 0.5 MG/2 ML AMPUL.NEB NEB SCH ×2 (07:30→19:30)
[2020-08-18] MEDS: ACETYLCYSTEINE 10% SOLN 400 MG/4 ML VIAL HHN SCH ×4 (07:35→20:09)
[2020-08-18] MEDS: LIDOCAINE 5% (PATCH) 1 EA PATCH TP SCH (09:00)
[2020-08-18] MEDS: HYDROGEN PEROXIDE 480 ML BOTTLE TP SCH ×2 (09:31→22:03)
[2020-08-18] MEDS: FAMOTIDINE (20 MG) 20 MG TABLET GT SCH ×2 (09:52→20:16)
[2020-08-18] MEDS: PROSOURCE / PROSTAT (PYXIS) 30 ML UDC GT SCH ×2 (09:52→17:02)
[2020-08-18] MEDS: DOCUSATE SODIUM LIQ 100 MG/10 ML UDC GT SCH ×2 (09:52→17:02)
--- NOTE | 2020-08-18 16:18 | NUR ---
MDS:Late entry for 08/15/2020 This Coating Mixer Supervisor completed the Blanket Inspector portion of MDS assessment. The patients sister, pt.'s sister, Daniel Mejía [phone] is the responsible constitution party. The patient is alert & oriented x 4 on room air with trach and g-tube feeding (see appropriate disciplines notes for details). The pt. is pleasant & compliant, cooperative with care. Pt. had on 08/14/2020 for 11 am appointment with William Miller DDS [[address], [address] [facility] [address] ] for follow up regarding jaw surgery.
--- NOTE | 2020-08-18 16:24 | NUR ---
Clinicals: MAVIS faxed clinicals to Viktoria Jorge at [facility] FAX: [phone] TEL:[phone].
[2020-08-18] MEDS: ENOXAPARIN SODIUM 40 MG/0.4 ML DISP.SYRIN SQ SCH (20:16)
[2020-08-19] VITALS (8 sets, daily range): BP systolic 99–121; BP diastolic 58–78
[2020-08-19] MEDS: JEVITY 1.2 CAL 1,000 ML BOTTLE GT SCH ×6 (01:47→21:01)
[2020-08-19] MEDS: oxyCODONE IR immediate release 5 MG GT PRN ×4 (01:48→22:41)
[2020-08-19] MEDS: CYCLOBENZAPRINE 10 MG TABLET GT SCH ×3 (06:03→21:01)
[2020-08-19] MEDS: ACETAMINOPHEN 650 MG/20 ML UDC- SA PATIENTS-PAIN ONLY GT SCH ×4 (06:03→18:10)
[2020-08-19] MEDS: ACETYLCYSTEINE 10% SOLN 400 MG/4 ML VIAL HHN SCH ×4 (08:21→19:30)
[2020-08-19] MEDS: BUDESONIDE RESPULE INH 0.5 MG/2 ML AMPUL.NEB NEB SCH ×2 (08:21→19:30)
[2020-08-19] MEDS: HYDROGEN PEROXIDE 480 ML BOTTLE TP SCH ×2 (09:00→20:15)
--- NOTE | 2020-08-19 09:05 | NUR ---
Covid test came back negative. Pt has been Covid negative for 14 days, received order to DC contact and droplet isolation for Covid observation. Notified pt.
[2020-08-19] MEDS: FAMOTIDINE (20 MG) 20 MG TABLET GT SCH ×2 (09:50→21:01)
[2020-08-19] MEDS: LIDOCAINE 5% (PATCH) 1 EA PATCH TP SCH (09:50)
[2020-08-19] MEDS: PROSOURCE / PROSTAT (PYXIS) 30 ML UDC GT SCH ×2 (09:50→17:00)
[2020-08-19] MEDS: DOCUSATE SODIUM LIQ 100 MG/10 ML UDC GT SCH ×2 (09:50→17:00)
--- NOTE | 2020-08-19 19:10 | NUR ---
Pt complained of pain in his lower back. No redness, no swelling, no discoloration noted. Pt was given Oxycodone and hot compress. Informed PUSHER RUNNER Carmela Villela during rounds. She said to have pt be evaluated by PT and maybe they can recommend exercises to alleviate low back pain.
[2020-08-19] MEDS: ENOXAPARIN SODIUM 40 MG/0.4 ML DISP.SYRIN SQ SCH (21:01)
[2020-08-19] MEDS: MELATONIN 3MG GT PRN (22:40)
[2020-08-20] VITALS (7 sets, daily range): BP systolic 99–117; BP diastolic 64–80
[2020-08-20] MEDS: ACETAMINOPHEN 650 MG/20 ML UDC- SA PATIENTS-PAIN ONLY GT SCH ×4 (00:09→18:00)
[2020-08-20] MEDS: JEVITY 1.2 CAL 1,000 ML BOTTLE GT SCH ×6 (02:00→21:53)
[2020-08-20] MEDS: oxyCODONE IR immediate release 5 MG GT PRN ×4 (03:31→20:29)
[2020-08-20] MEDS: CYCLOBENZAPRINE 10 MG TABLET GT SCH ×3 (05:44→20:27)
[2020-08-20] MEDS: ACETYLCYSTEINE 10% SOLN 400 MG/4 ML VIAL HHN SCH ×4 (07:59→20:20)
[2020-08-20] MEDS: BUDESONIDE RESPULE INH 0.5 MG/2 ML AMPUL.NEB NEB SCH ×2 (07:59→20:17)
[2020-08-20] MEDS: HYDROGEN PEROXIDE 480 ML BOTTLE TP SCH ×2 (08:13→20:18)
--- NOTE | 2020-08-20 08:30 | NUR ---
INTAKE PAPERWORK: SW received completed intake paperwork (Patient Right's Acknowledgement, Documentation of Preferred Intensity of Care, Conditions of Admission, CDPH Agreement, and Voluntary Prior Express Consent form) from pt.'s sister, Daniel Mejía [phone] on 08/19/2020 . Daniel would like the pt. to remain Full Code: Maximum Treatment & CPR. SW placed paperwork in the pt.'s chart & informed charge nurse, Kae.
[2020-08-20] MEDS: FAMOTIDINE (20 MG) 20 MG TABLET GT SCH ×2 (08:58→20:27)
[2020-08-20] MEDS: PROSOURCE / PROSTAT (PYXIS) 30 ML UDC GT SCH ×2 (08:58→16:22)
[2020-08-20] MEDS: DOCUSATE SODIUM LIQ 100 MG/10 ML UDC GT SCH ×2 (08:58→16:22)
[2020-08-20] MEDS: LIDOCAINE 5% (PATCH) 1 EA PATCH TP SCH (08:58)
--- NOTE | 2020-08-20 09:55 | NUR ---
Clinicals: MAVIS faxed clinicals to Viktoria Jorge at [facility] FAX: [phone] TEL:[phone].
[2020-08-20] MEDS: ALBUTEROL FS 2.5 MG/3 ML VIAL.NEB NEB PRN (15:50)
[2020-08-20] MEDS: ENOXAPARIN SODIUM 40 MG/0.4 ML DISP.SYRIN SQ SCH (20:38)
[2020-08-21] VITALS (7 sets, daily range): BP systolic 91–115; BP diastolic 64–71
[2020-08-21] MEDS: JEVITY 1.2 CAL 1,000 ML BOTTLE GT SCH ×6 (02:00→21:09)
[2020-08-21] MEDS: oxyCODONE IR immediate release 5 MG GT PRN ×4 (03:17→22:34)
[2020-08-21] MEDS: CYCLOBENZAPRINE 10 MG TABLET GT SCH ×3 (05:30→20:22)
[2020-08-21] MEDS: ACETAMINOPHEN 650 MG/20 ML UDC- SA PATIENTS-PAIN ONLY GT SCH ×5 (05:32→23:20)
[2020-08-21] MEDS: BUDESONIDE RESPULE INH 0.5 MG/2 ML AMPUL.NEB NEB SCH ×2 (07:30→20:20)
[2020-08-21] MEDS: ACETYLCYSTEINE 10% SOLN 400 MG/4 ML VIAL HHN SCH ×3 (07:35→15:30)
[2020-08-21] MEDS: HYDROGEN PEROXIDE 480 ML BOTTLE TP SCH ×2 (09:00→20:20)
[2020-08-21] MEDS: DOCUSATE SODIUM LIQ 100 MG/10 ML UDC GT SCH ×2 (09:17→17:44)
[2020-08-21] MEDS: FAMOTIDINE (20 MG) 20 MG TABLET GT SCH ×2 (09:17→20:22)
[2020-08-21] MEDS: LIDOCAINE 5% (PATCH) 1 EA PATCH TP SCH (09:18)
[2020-08-21] MEDS: PROSOURCE / PROSTAT (PYXIS) 30 ML UDC GT SCH ×2 (09:18→17:44)
--- NOTE | 2020-08-21 09:20 | NUR ---
Notified Dr Arita that pt is requesting for an x-ray of his lower back due to pain. No redness, no swelling noted. Dr Arita ordered to do a lumbar spine x-ray. Informed pt.
--- NOTE | 2020-08-21 16:24 | NUR ---
SS Note: MAVIS followed up and called the office of Dr. Miller [phone] to request progress notes of pt.'s last visit to be faxed to [phone]. MAVIS left call back number and nursing station call back number. MAVIS will follow up accordingly.
--- NOTE | 2020-08-21 16:41 | NUR ---
RT NOTE WENT INTO PATIENTS ROOM AND ASKED IF HE WANTED HIS TREATMENT PATIENT REFUSED. NO SIGNS OF DISTRESS NOTED. NO INCREASED WOB NOTED. PT RESTING COMFORTABLY.
--- NOTE | 2020-08-21 17:24 | NUR ---
Asked GROUND SUPPORT EQUIPMENT MECHANIC Carmela Villlea if pt still needs Mucomyst. Pt does not have thick secretions and pt refused it at this time. Notified her that Albuterol or Atrovent is being given with Mucomyst, although pt has not had any episode of SOB. Also notified her that pt sometimes refuses Pulmicort. She said she will decide on breathing treatments once she sees the pt later today.
[2020-08-21] MEDS: ALBUTEROL FS 2.5 MG/3 ML VIAL.NEB NEB PRN (20:20)
[2020-08-21] MEDS: IPRATROPIUM NEB FS 0.5 MG/2.5 ML AMPUL.NEB NEB PRN (20:20)
[2020-08-21] MEDS: ENOXAPARIN SODIUM 40 MG/0.4 ML DISP.SYRIN SQ SCH (20:22)
[2020-08-21] MEDS: MELATONIN 3MG GT PRN (20:56)
[2020-08-22] VITALS (8 sets, daily range): BP systolic 90–122; BP diastolic 56–76
[2020-08-22] MEDS: JEVITY 1.2 CAL 1,000 ML BOTTLE GT SCH ×6 (01:52→21:01)
[2020-08-22] MEDS: oxyCODONE IR immediate release 5 MG GT PRN ×3 (04:55→20:02)
[2020-08-22] MEDS: CYCLOBENZAPRINE 10 MG TABLET GT SCH ×3 (05:08→20:01)
[2020-08-22] MEDS: ACETAMINOPHEN 650 MG/20 ML UDC- SA PATIENTS-PAIN ONLY GT SCH ×4 (05:08→23:23)
[2020-08-22] MEDS: BUDESONIDE RESPULE INH 0.5 MG/2 ML AMPUL.NEB NEB SCH ×2 (07:29→19:23)
[2020-08-22] MEDS: HYDROGEN PEROXIDE 480 ML BOTTLE TP SCH ×2 (08:46→19:23)
[2020-08-22] MEDS: FAMOTIDINE (20 MG) 20 MG TABLET GT SCH ×2 (09:36→20:01)
[2020-08-22] MEDS: DOCUSATE SODIUM LIQ 100 MG/10 ML UDC GT SCH ×2 (09:36→17:38)
[2020-08-22] MEDS: LIDOCAINE 5% (PATCH) 1 EA PATCH TP SCH (09:36)
[2020-08-22] MEDS: PROSOURCE / PROSTAT (PYXIS) 30 ML UDC GT SCH ×2 (09:36→17:38)
--- NOTE | 2020-08-22 14:00 | NUR ---
During IDT, Dr. Carson reviewed lower back X-ray result, no new order given. Informed MD that patient has been complaining of lower back pain, the reason for lower back X-ray. According to patient the pain is better, Lidocaine patch is helping in combination with muscle relaxant and his OxyIR. Resident's sister Daniel very pleased to hear that pain is somewhat controlled. She is also aware of lower back x-ray result.
--- NOTE | 2020-08-22 15:51 | NUR ---
INTERDISCIPLINARY PLAN OF CARE CONFERENCE took place today. The patients sister, Daniel Mejía [phone] Carson and Interdisciplinary team discussed the plan of care in detail. Current orders as well as treatments and medications were reviewed. See other disciplines IDT notes for further details.
--- NOTE | 2020-08-22 16:35 | NUR ---
Follow up apt. with Dental Surgeon: MAVIS called [facility] [phone] and scheduled follow up apt. on 09/01/2020 11:30 am. MAVIS called [facility] [phone] and set up transportation from [facility] to [facility] [[address] [facility] [address] [place] [id number]]. MAVIS also faxed [facility] [facility] prior authorization to [facility] fax: [phone] as requested. MAVIS will follow up and confirm transportation.
[2020-08-22] MEDS: ENOXAPARIN SODIUM 40 MG/0.4 ML DISP.SYRIN SQ SCH (20:02)
[2020-08-23] VITALS (8 sets, daily range): BP systolic 103–119; BP diastolic 58–77
[2020-08-23] MEDS: JEVITY 1.2 CAL 1,000 ML BOTTLE GT SCH ×6 (01:02→21:17)
[2020-08-23] MEDS: oxyCODONE IR immediate release 5 MG GT PRN ×3 (02:13→20:46)
[2020-08-23] MEDS: ACETAMINOPHEN 650 MG/20 ML UDC- SA PATIENTS-PAIN ONLY GT SCH ×4 (05:06→23:12)
[2020-08-23] MEDS: CYCLOBENZAPRINE 10 MG TABLET GT SCH ×3 (05:06→20:29)
--- NOTE | 2020-08-23 06:09 | NUR ---
PATIENT RECEIVED ON ROOM AIR TRACHED, TOLERATING WITH NO DISTRESS/SOB NOTED. SUCTIONED FOR MINIMAL, THIN, YELLOW SECRETIONS. GIVEN HHN TREATMENT WITH NO ADVERSE REACTIONS. AMBU BAG AT BEDSIDE. Addendum: 08/23/20 at 0610 by TOMER CHAIREZ RT Amended: Links added.
[2020-08-23] MEDS: BUDESONIDE RESPULE INH 0.5 MG/2 ML AMPUL.NEB NEB SCH ×2 (07:26→19:36)
[2020-08-23] MEDS: HYDROGEN PEROXIDE 480 ML BOTTLE TP SCH ×2 (08:23→21:51)
[2020-08-23] MEDS: FAMOTIDINE (20 MG) 20 MG TABLET GT SCH ×2 (08:48→20:29)
[2020-08-23] MEDS: LIDOCAINE 5% (PATCH) 1 EA PATCH TP SCH (08:49)
[2020-08-23] MEDS: DOCUSATE SODIUM LIQ 100 MG/10 ML UDC GT SCH ×2 (08:50→17:00)
[2020-08-23] MEDS: PROSOURCE / PROSTAT (PYXIS) 30 ML UDC GT SCH ×2 (08:50→17:00)
--- NOTE | 2020-08-23 12:42 | NUR ---
Seen and examined by Dr. Arita. Patient verbalized that he is still experiencing pain in his lower back. Dr. Arita said he will review lower back xray and will order MRI if needed. Dr. Arita also told patient to use Ibuprofen instead of Tylenol to help with swelling. Patient with existing order of Ibuprofen 600mg. Q4 hours PRN. No new order given at this time.
[2020-08-23] MEDS: IBUPROFEN SUSP 100 MG/5 ML UDC-SA PATIENTS-PAIN ONLY GT PRN ×2 (19:24→19:27)
[2020-08-23] MEDS: ENOXAPARIN SODIUM 40 MG/0.4 ML DISP.SYRIN SQ SCH (20:29)
[2020-08-23] MEDS: MELATONIN 3MG GT PRN (22:15)
[2020-08-24] VITALS (9 sets, daily range): BP systolic 100–120; BP diastolic 58–75
[2020-08-24] MEDS: IBUPROFEN SUSP 100 MG/5 ML UDC-SA PATIENTS-PAIN ONLY GT PRN ×2 (00:14→17:59)
[2020-08-24] MEDS: JEVITY 1.2 CAL 1,000 ML BOTTLE GT SCH ×6 (01:39→21:41)
[2020-08-24] MEDS: CYCLOBENZAPRINE 10 MG TABLET GT SCH ×3 (05:16→20:59)
[2020-08-24] MEDS: ACETAMINOPHEN 650 MG/20 ML UDC- SA PATIENTS-PAIN ONLY GT SCH ×5 (05:17→23:02)
[2020-08-24] MEDS: BUDESONIDE RESPULE INH 0.5 MG/2 ML AMPUL.NEB NEB SCH ×2 (07:23→20:07)
[2020-08-24] MEDS: HYDROGEN PEROXIDE 480 ML BOTTLE TP SCH ×2 (08:07→20:07)
[2020-08-24] MEDS: DOCUSATE SODIUM LIQ 100 MG/10 ML UDC GT SCH ×2 (09:55→17:48)
[2020-08-24] MEDS: PROSOURCE / PROSTAT (PYXIS) 30 ML UDC GT SCH ×2 (09:55→17:48)
[2020-08-24] MEDS: FAMOTIDINE (20 MG) 20 MG TABLET GT SCH ×2 (09:55→20:59)
[2020-08-24] MEDS: LIDOCAINE 5% (PATCH) 1 EA PATCH TP SCH (09:55)
[2020-08-24] MEDS: oxyCODONE IR immediate release 5 MG GT PRN (13:32)
[2020-08-24] MEDS: ENOXAPARIN SODIUM 40 MG/0.4 ML DISP.SYRIN SQ SCH (21:01)
[2020-08-25] VITALS (7 sets, daily range): BP systolic 111–136; BP diastolic 68–80
[2020-08-25] MEDS: JEVITY 1.2 CAL 1,000 ML BOTTLE GT SCH ×6 (01:48→21:27)
[2020-08-25] MEDS: IBUPROFEN SUSP 100 MG/5 ML UDC-SA PATIENTS-PAIN ONLY GT PRN (01:53)
[2020-08-25] MEDS: CYCLOBENZAPRINE 10 MG TABLET GT SCH ×3 (04:52→20:46)
[2020-08-25] MEDS: ACETAMINOPHEN 650 MG/20 ML UDC- SA PATIENTS-PAIN ONLY GT SCH ×3 (05:02→17:39)
[2020-08-25] MEDS: BUDESONIDE RESPULE INH 0.5 MG/2 ML AMPUL.NEB NEB SCH ×2 (07:48→20:01)
[2020-08-25] MEDS: HYDROGEN PEROXIDE 480 ML BOTTLE TP SCH ×2 (08:14→20:01)
--- NOTE | 2020-08-25 09:33 | NUR ---
SS Note: MAVIS followed up and confirmed transportation with [facility] [phone]. Per Ori , they received the prior authorization and will bill the insurance. Per Ori, they have an RT for this transport on 09/01/2020.
[2020-08-25] MEDS: DOCUSATE SODIUM LIQ 100 MG/10 ML UDC GT SCH ×2 (09:44→17:39)
[2020-08-25] MEDS: PROSOURCE / PROSTAT (PYXIS) 30 ML UDC GT SCH ×2 (09:44→17:39)
[2020-08-25] MEDS: FAMOTIDINE (20 MG) 20 MG TABLET GT SCH ×2 (09:44→20:46)
[2020-08-25] MEDS: LIDOCAINE 5% (PATCH) 1 EA PATCH TP SCH (09:44)
--- NOTE | 2020-08-25 14:57 | NUR ---
RT NOTE PT AWAKE/ALERT AND FOLLOWING COMMANDS. PT TOLERATING ROOM AIR WELL. PRN SX NEEDED. NO RESPIRATORY DISTRESS NOTED. BILATERAL CLEAR/DIMINISHED B/S NOTED. TRACH SECURED VIA TRACH TIE. TRACH CARE DONE.
--- NOTE | 2020-08-25 15:09 | NUR ---
Clinicals: MAVIS faxed latest clinicals to Viktoria Jorge at [facility] FAX: [phone] TEL:[phone].
[2020-08-25] MEDS: oxyCODONE IR immediate release 5 MG GT PRN (15:46)
[2020-08-25] MEDS: ENOXAPARIN SODIUM 40 MG/0.4 ML DISP.SYRIN SQ SCH (20:46)
[2020-08-26] VITALS (7 sets, daily range): BP systolic 109–139; BP diastolic 64–80
[2020-08-26] MEDS: ACETAMINOPHEN 650 MG/20 ML UDC- SA PATIENTS-PAIN ONLY GT SCH ×4 (00:13→17:30)
[2020-08-26] MEDS: JEVITY 1.2 CAL 1,000 ML BOTTLE GT SCH ×6 (02:00→21:06)
[2020-08-26] MEDS: oxyCODONE IR immediate release 5 MG GT PRN ×3 (03:23→20:39)
[2020-08-26] MEDS: CYCLOBENZAPRINE 10 MG TABLET GT SCH ×3 (05:34→20:39)
[2020-08-26] MEDS: BUDESONIDE RESPULE INH 0.5 MG/2 ML AMPUL.NEB NEB SCH ×2 (07:47→20:30)
[2020-08-26] MEDS: PROSOURCE / PROSTAT (PYXIS) 30 ML UDC GT SCH ×2 (09:00→17:30)
[2020-08-26] MEDS: FAMOTIDINE (20 MG) 20 MG TABLET GT SCH ×2 (09:00→20:39)
[2020-08-26] MEDS: LIDOCAINE 5% (PATCH) 1 EA PATCH TP SCH (09:00)
[2020-08-26] MEDS: DOCUSATE SODIUM LIQ 100 MG/10 ML UDC GT SCH ×2 (09:00→17:30)
[2020-08-26] MEDS: HYDROGEN PEROXIDE 480 ML BOTTLE TP SCH ×2 (09:54→21:12)
--- NOTE | 2020-08-26 15:18 | NUR ---
Discharge Plan: MAVIS notified by [facility] RN, Valeri [phone] that the last covered day will be 08/05/2020 and pt. must be billed under care home care after or D/C home on 09/03/2020. Noted. MAVIS called the pt.'s sister, Daniel Mejía [phone] to discuss discharge plan. Per Zoniajennhoney, the pt. can reside with her at [address] [place] [address] [address] [facility] [address]. Noted. MAVIS inquired if Daniel started IHSS application emailed to her by MAVIS on 08/08/2020. Daniel stated she will complete & submit application ADRIAN. MAVIS notified charge nurse of above stated information. MAVIS will continue to collaborate with IDT to ensure safe & proper discharge planning.
--- NOTE | 2020-08-26 16:49 | NUR ---
According to MAVIS Hernandez, there is a plan to discharge pt on 09/03/20. Pt 's sister will speak with his landlord to place him in an apartment building or he can be discharge to her home. Pt has an appointment with Dr Miller on 09/01/20. Informed pt.
[2020-08-26] MEDS: ENOXAPARIN SODIUM 40 MG/0.4 ML DISP.SYRIN SQ SCH (20:40)
[2020-08-27] VITALS (10 sets, daily range): BP systolic 108–118; BP diastolic 62–83
[2020-08-27] MEDS: ACETAMINOPHEN 650 MG/20 ML UDC- SA PATIENTS-PAIN ONLY GT SCH ×4 (00:25→17:52)
[2020-08-27] MEDS: JEVITY 1.2 CAL 1,000 ML BOTTLE GT SCH ×6 (02:00→21:20)
[2020-08-27] MEDS: oxyCODONE IR immediate release 5 MG GT PRN ×3 (05:12→19:51)
[2020-08-27] MEDS: CYCLOBENZAPRINE 10 MG TABLET GT SCH ×3 (05:47→21:19)
[2020-08-27] MEDS: BUDESONIDE RESPULE INH 0.5 MG/2 ML AMPUL.NEB NEB SCH ×2 (08:30→19:40)
[2020-08-27] MEDS: PROSOURCE / PROSTAT (PYXIS) 30 ML UDC GT SCH ×2 (09:00→17:51)
[2020-08-27] MEDS: FAMOTIDINE (20 MG) 20 MG TABLET GT SCH ×2 (09:00→21:19)
[2020-08-27] MEDS: LIDOCAINE 5% (PATCH) 1 EA PATCH TP SCH (09:00)
[2020-08-27] MEDS: HYDROGEN PEROXIDE 480 ML BOTTLE TP SCH ×2 (09:00→19:40)
[2020-08-27] MEDS: DOCUSATE SODIUM LIQ 100 MG/10 ML UDC GT SCH ×2 (09:00→17:51)
--- NOTE | 2020-08-27 13:30 | NUR ---
Notified Dr. Arita that patient still complaining of pain in the lower back despite his medications. Patient is scheduled for discharge home on 09/03/20. Dr. Arita ordered to send patient for MRI with and without contrast. Admitting department notified said that patient will need authorization but if it is needed urgently, it is OK to use same account. Placed order in patient's current account.
--- NOTE | 2020-08-27 15:35 | NUR ---
Clinicals: MAVIS faxed latest clinicals to Viktoria Jorge at [facility] FAX: [phone] TEL:[phone].
--- NOTE | 2020-08-27 16:30 | NUR ---
D/C Planning: MAVIS informed charge nurse that a recent COVID-19 test is needed for home health & IHSS purposes.
--- NOTE | 2020-08-27 18:48 | NUR ---
Health teachings imparted to the patient regarding GT feeding and medications via GT. Able to performed introduction of medications via GT and GT feeding by himself as observed but only half way he was able to do due to left lower back pain. reported to the CN. continue to do health teachings in preparation for discharge.
--- NOTE | 2020-08-27 19:40 | NUR ---
Obtained consent for MRI of brain with and without contrast from patient's sister Jorge witnessed by two licensed nurses.
[2020-08-27] MEDS: ENOXAPARIN SODIUM 40 MG/0.4 ML DISP.SYRIN SQ SCH (21:20)
[2020-08-28] VITALS (7 sets, daily range): BP systolic 114–128; BP diastolic 69–85
[2020-08-28] MEDS: ACETAMINOPHEN 650 MG/20 ML UDC- SA PATIENTS-PAIN ONLY GT SCH ×5 (00:29→23:37)
[2020-08-28] MEDS: JEVITY 1.2 CAL 1,000 ML BOTTLE GT SCH ×7 (02:00→22:00)
[2020-08-28] MEDS: oxyCODONE IR immediate release 5 MG GT PRN ×4 (04:24→21:35)
[2020-08-28] MEDS: CYCLOBENZAPRINE 10 MG TABLET GT SCH ×3 (05:40→21:33)
--- NOTE | 2020-08-28 06:28 | NUR ---
TEXTED DR. DAVID FOR MRI APPROVAL.
[2020-08-28] MEDS: BUDESONIDE RESPULE INH 0.5 MG/2 ML AMPUL.NEB NEB SCH ×2 (07:30→19:30)
[2020-08-28] MEDS: HYDROGEN PEROXIDE 480 ML BOTTLE TP SCH ×2 (08:29→21:22)
[2020-08-28] MEDS: FAMOTIDINE (20 MG) 20 MG TABLET GT SCH ×2 (09:56→21:33)
[2020-08-28] MEDS: PROSOURCE / PROSTAT (PYXIS) 30 ML UDC GT SCH ×2 (09:56→17:43)
[2020-08-28] MEDS: DOCUSATE SODIUM LIQ 100 MG/10 ML UDC GT SCH ×2 (09:56→17:43)
[2020-08-28] MEDS: LIDOCAINE 5% (PATCH) 1 EA PATCH TP SCH (09:56)
--- NOTE | 2020-08-28 12:04 | NUR ---
Asked Jannet (billing department) if pt needs to have an authorization for his MRI. She said to use the same account for pt and she will take care of it with the insurance. Called MRI and spoke with Taye. He said he already got the approval to do the MRI and he will arrange for it.
--- NOTE | 2020-08-28 14:00 | NUR ---
Pt was taken to MRI but MRI machine was not working.
[2020-08-28] MEDS: ENOXAPARIN SODIUM 40 MG/0.4 ML DISP.SYRIN SQ SCH (21:34)
[2020-08-29] VITALS (8 sets, daily range): BP systolic 109–123; BP diastolic 61–93
[2020-08-29] MEDS: JEVITY 1.2 CAL 1,000 ML BOTTLE GT SCH ×5 (02:00→22:01)
[2020-08-29] MEDS: oxyCODONE IR immediate release 5 MG GT PRN ×3 (03:42→18:27)
[2020-08-29] MEDS: CYCLOBENZAPRINE 10 MG TABLET GT SCH ×3 (05:05→21:29)
[2020-08-29] MEDS: ACETAMINOPHEN 650 MG/20 ML UDC- SA PATIENTS-PAIN ONLY GT SCH ×4 (05:06→23:45)
[2020-08-29] MEDS: BUDESONIDE RESPULE INH 0.5 MG/2 ML AMPUL.NEB NEB SCH ×2 (07:30→19:30)
[2020-08-29] MEDS: DOCUSATE SODIUM LIQ 100 MG/10 ML UDC GT SCH ×2 (09:28→17:00)
[2020-08-29] MEDS: FAMOTIDINE (20 MG) 20 MG TABLET GT SCH ×2 (09:28→21:29)
[2020-08-29] MEDS: LIDOCAINE 5% (PATCH) 1 EA PATCH TP SCH (09:31)
[2020-08-29] MEDS: PROSOURCE / PROSTAT (PYXIS) 30 ML UDC GT SCH ×2 (09:31→17:00)
[2020-08-29] MEDS: HYDROGEN PEROXIDE 480 ML BOTTLE TP SCH ×2 (09:48→21:27)
--- NOTE | 2020-08-29 16:13 | NUR ---
Seen and examined by KARON Villela, no new order given at this time.
--- NOTE | 2020-08-29 16:20 | NUR ---
Facility Update: SW notified pt.s family via [employer] regarding condition in the facility and updated regulations for patient visitation as implemented by [facility] and [facility]. MAVIS also notified No [facility] Sub-Acute residents or employees tested positive for COVID-19 this week. As recommended by [facility], all Sub-Acute residents & healthcare personnel will continue receiving surveillance testing. [facility] continues to follow infection control protocols and screen our residents and staff daily for symptoms". SW will be available to support families as needed.
--- NOTE | 2020-08-29 19:30 | NUR ---
Received an order from Dr. Arita to do CT scan of the lumbar spine with contrast instead and DC MRI of LS. Resident informed.
[2020-08-29] MEDS: ENOXAPARIN SODIUM 40 MG/0.4 ML DISP.SYRIN SQ SCH (21:33)
[2020-08-29] MEDS: IBUPROFEN SUSP 100 MG/5 ML UDC-SA PATIENTS-PAIN ONLY GT PRN (23:34)
--- NOTE | 2020-08-29 23:36 | NUR ---
EVENT HOST NOTE Routine Tylenol 650mg held, Ibuprofen 600 mg given instead via gt, as per patient's request and as per MD recommendation to alternate with tylenol. Pt still complained on left lower back pain. Warm compress provided .
[2020-08-29] MEDS: MELATONIN 3MG GT PRN (23:38)
[2020-08-30] VITALS (9 sets, daily range): BP systolic 112–141; BP diastolic 62–88
[2020-08-30] MEDS: JEVITY 1.2 CAL 1,000 ML BOTTLE GT SCH ×6 (02:00→21:30)
[2020-08-30] MEDS: ACETAMINOPHEN 650 MG/20 ML UDC- SA PATIENTS-PAIN ONLY GT SCH ×3 (05:21→18:00)
[2020-08-30] MEDS: CYCLOBENZAPRINE 10 MG TABLET GT SCH ×3 (05:21→21:30)
[2020-08-30] MEDS: BUDESONIDE RESPULE INH 0.5 MG/2 ML AMPUL.NEB NEB SCH ×2 (07:50→19:19)
[2020-08-30] MEDS: HYDROGEN PEROXIDE 480 ML BOTTLE TP SCH ×2 (08:13→19:24)
[2020-08-30] MEDS: FAMOTIDINE (20 MG) 20 MG TABLET GT SCH ×2 (09:14→21:30)
[2020-08-30] MEDS: DOCUSATE SODIUM LIQ 100 MG/10 ML UDC GT SCH ×2 (09:14→17:00)
[2020-08-30] MEDS: LIDOCAINE 5% (PATCH) 1 EA PATCH TP SCH (09:15)
[2020-08-30] MEDS: PROSOURCE / PROSTAT (PYXIS) 30 ML UDC GT SCH ×2 (09:15→17:00)
[2020-08-30] MEDS: IBUPROFEN SUSP 100 MG/5 ML UDC-SA PATIENTS-PAIN ONLY GT PRN ×2 (09:23→18:32)
--- NOTE | 2020-08-30 10:10 | NUR ---
Per radiology staff, resident should have a recent creatinine level since the order for CT scan is with contrast. Obtained BMP order from Dr. Carson.
--- NOTE | 2020-08-30 11:10 | NUR ---
Resident sister was made aware that CT scan will be done instead of MRI. Consent obtained by [address]
[2020-08-30 11:30] LABS: CALCIUM, SERUM 9.8 mg/dL (8.5-10.1); POTASSIUM 5.2 mmol/L (3.5-5.1)
[2020-08-30] MEDS ORDERED: IOHEXOL-300 100 ML VIAL IV ONE (11:58)
[2020-08-30] MEDS: oxyCODONE IR immediate release 5 MG GT PRN ×2 (12:31→21:34)
--- NOTE | 2020-08-30 12:35 | NUR ---
CT scan done, resident wheeled to and from radiology department by survey cad technician in stable condition. Awaiting for result.
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
--- NOTE | 2020-08-30 18:08 | NUR ---
Left a message to Dr. Arita regarding CT scan of lumbar spine and BMP result.
[2020-08-30] MEDS: ENOXAPARIN SODIUM 40 MG/0.4 ML DISP.SYRIN SQ SCH (21:30)
[2020-08-30] MEDS: MELATONIN 3MG GT PRN (22:30)
[2020-08-31] VITALS (7 sets, daily range): BP systolic 108–128; BP diastolic 68–80
[2020-08-31] MEDS: ACETAMINOPHEN 650 MG/20 ML UDC- SA PATIENTS-PAIN ONLY GT SCH ×4 (00:24→17:42)
[2020-08-31] MEDS: JEVITY 1.2 CAL 1,000 ML BOTTLE GT SCH ×6 (02:00→21:26)
[2020-08-31] MEDS: CYCLOBENZAPRINE 10 MG TABLET GT SCH ×3 (05:58→21:25)
[2020-08-31] MEDS: oxyCODONE IR immediate release 5 MG GT PRN ×3 (06:47→21:26)
[2020-08-31] MEDS: BUDESONIDE RESPULE INH 0.5 MG/2 ML AMPUL.NEB NEB SCH ×2 (07:49→19:34)
[2020-08-31] MEDS: PROSOURCE / PROSTAT (PYXIS) 30 ML UDC GT SCH ×2 (09:00→17:42)
[2020-08-31] MEDS: FAMOTIDINE (20 MG) 20 MG TABLET GT SCH ×2 (09:00→21:25)
[2020-08-31] MEDS: LIDOCAINE 5% (PATCH) 1 EA PATCH TP SCH (09:00)
[2020-08-31] MEDS: DOCUSATE SODIUM LIQ 100 MG/10 ML UDC GT SCH ×2 (09:00→17:42)
[2020-08-31] MEDS: HYDROGEN PEROXIDE 480 ML BOTTLE TP SCH ×2 (09:20→19:34)
[2020-08-31] MEDS: ENOXAPARIN SODIUM 40 MG/0.4 ML DISP.SYRIN SQ SCH (21:26)
[2020-09-01] VITALS (8 sets, daily range): BP systolic 106–130; BP diastolic 62–96
[2020-09-01] MEDS: ACETAMINOPHEN 650 MG/20 ML UDC- SA PATIENTS-PAIN ONLY GT SCH ×5 (00:05→23:13)
[2020-09-01] MEDS: JEVITY 1.2 CAL 1,000 ML BOTTLE GT SCH ×6 (02:51→21:18)
[2020-09-01] MEDS: CYCLOBENZAPRINE 10 MG TABLET GT SCH ×3 (05:45→21:17)
[2020-09-01] MEDS: oxyCODONE IR immediate release 5 MG GT PRN ×4 (06:47→23:44)
[2020-09-01] MEDS: BUDESONIDE RESPULE INH 0.5 MG/2 ML AMPUL.NEB NEB SCH ×2 (07:30→20:07)
[2020-09-01] MEDS: HYDROGEN PEROXIDE 480 ML BOTTLE TP SCH ×2 (08:19→20:07)
--- NOTE | 2020-09-01 08:35 | NUR ---
Transport Confirmation: MAVIS called [facility] ambulance [phone] and spoke with Eric to confirm transport for 09/01/2020 11:30 am apt. to [facility] D[facility] Office [[address] [facility] [address] [place] [address]] for follow up regarding dental surgery. Per Eric pt. will be picked up 09/01/2020 at 10:00 am with RT for round trip transport. Noted. MAVIS informed Charge NursePeyton.
[2020-09-01] MEDS: LIDOCAINE 5% (PATCH) 1 EA PATCH TP SCH (09:04)
[2020-09-01] MEDS: DOCUSATE SODIUM LIQ 100 MG/10 ML UDC GT SCH ×2 (09:04→17:08)
[2020-09-01] MEDS: FAMOTIDINE (20 MG) 20 MG TABLET GT SCH ×2 (09:04→21:17)
[2020-09-01] MEDS: PROSOURCE / PROSTAT (PYXIS) 30 ML UDC GT SCH ×2 (09:04→17:08)
--- NOTE | 2020-09-01 10:30 | NUR ---
Left for his appointment with Dr. William Miller DDS in stable condition. Report given to ambulance staff regarding patient's condition and reason for the appointment.
[2020-09-01] MEDS ORDERED: COVID-19 VACC,MRNA(MODERNA) 100 MCG/0.5 ML IM ONE (12:00)
--- NOTE | 2020-09-01 13:20 | NUR ---
Resident returned back from appointment with Dr. William Miller DDS in stable condition, wire in his mouth were removed. According to transport, the dentist would like to see him again in 10 days. SSD to confirm appointment.
--- NOTE | 2020-09-01 13:25 | NUR ---
2nd dose of Moderna vaccine 0.5 ml IM given on left deltoid, tolerated well. Will monitor for any side effects.
--- NOTE | 2020-09-01 14:20 | NUR ---
D/C Planning: SW notified by pt. as patients sisterDaniel that pt. expressed he is hesitant to go home due to suctioning. SW spoke with pt. to address ambivalence. Patient stated that he got the wiring removed from his mouth today during dental surgeon apt. with Dr. William Miller. Per patient, he feels more confident and feels safe to go home with Sister, Daniel Mejía on 09/04/2020 now that he is able to open his mouth more. RT will supervise patient when pt. completes suctioning independently from now until D/C on 09/04/2020 to ensure patient in competent and feels confident in conducting suctioning independently. Patient is agreeable to plan and RT is aware and will continue providing education and supervising patient when pt. suctioning independently. SW will continue checking in on pt. as needed and providing support. MAVIS relayed information to Daniel. Per Daniel, to notify SW pick time on 09/04/2020 and pt. will reside in her home [[address] [place] [address]. [address] [facility] [address]]. Daniel also to specify pharmacy of choice for medication. Addendum: 09/02/20 at 1348 by WILL GAMBLE MAVIS offered placement at independent living facility or B&C and patient refused. Patient stated he wishes to be D/C to home with HH and DME as needed.
--- NOTE | 2020-09-01 14:26 | NUR ---
Notified Dr. Carson that resident's wire in the mouth has been removed. He said that he will evaluate resident tomorrow if and when he needs to be decannulated. gave an order for an ST eval. Order carried out. Resident informed.
--- NOTE | 2020-09-01 15:31 | NUR ---
Clinicals: MAVIS faxed latest clinicals to Viktoria Jorge at [facility] FAX: [phone] TEL:[phone].
--- NOTE | 2020-09-01 15:31 | NUR ---
SS NOTE: Per [facility] ASSEMBLER FISHING [employer]LO[employer] JANENE TEL: [phone] FAX: [phone], SW faxed MD order: Last covered day 09/03/2020 nd pt. to be discharged on 09/04/2020 pending SW placement. SW will follow up as needed.
[2020-09-01] MEDS: IBUPROFEN SUSP 100 MG/5 ML UDC-SA PATIENTS-PAIN ONLY GT PRN (17:20)
--- NOTE | 2020-09-01 20:00 | NUR ---
RN NOTES S/P Covid-19 vaccine. Afebrile. Will continue to monitor.
[2020-09-01] MEDS: ENOXAPARIN SODIUM 40 MG/0.4 ML DISP.SYRIN SQ SCH (21:17)
[2020-09-02] VITALS (8 sets, daily range): BP systolic 107–124; BP diastolic 55–80
[2020-09-02] MEDS: JEVITY 1.2 CAL 1,000 ML BOTTLE GT SCH ×5 (02:00→16:56)
[2020-09-02] MEDS: CYCLOBENZAPRINE 10 MG TABLET GT SCH ×3 (05:00→21:41)
[2020-09-02] MEDS: ACETAMINOPHEN 650 MG/20 ML UDC- SA PATIENTS-PAIN ONLY GT SCH ×3 (06:09→18:19)
[2020-09-02] MEDS: oxyCODONE IR immediate release 5 MG GT PRN ×4 (06:35→19:53)
[2020-09-02] MEDS: BUDESONIDE RESPULE INH 0.5 MG/2 ML AMPUL.NEB NEB SCH (07:31)
--- NOTE | 2020-09-02 08:30 | NUR ---
Seen and examined by Dr. Carson, gave order to place trach cap as tolerated. If patient able to tolerate, trach tube will be removed fartun 09/03/20. Will continue to monitor.
[2020-09-02] MEDS: HYDROGEN PEROXIDE 480 ML BOTTLE TP SCH ×2 (08:44→20:20)
--- NOTE | 2020-09-02 08:55 | NUR ---
SS NOTE: Per [facility] case worker, JANENE TEL: [phone] FAX: [phone], MAVIS has pt. sign NOMNC (Notice of Medicare Non-Coverage) and MAVIS faxed it back FAX: [phone] to Janene. MAVIS will be available as needed.
[2020-09-02] MEDS: PROSOURCE / PROSTAT (PYXIS) 30 ML UDC GT SCH ×2 (09:32→16:56)
[2020-09-02] MEDS: LIDOCAINE 5% (PATCH) 1 EA PATCH TP SCH (09:32)
[2020-09-02] MEDS: DOCUSATE SODIUM LIQ 100 MG/10 ML UDC GT SCH ×2 (09:32→16:56)
[2020-09-02] MEDS: FAMOTIDINE (20 MG) 20 MG TABLET GT SCH ×2 (09:32→21:41)
--- NOTE | 2020-09-02 10:30 | NUR ---
ST/Swallow eval. done by Anh Mccain with new order to start p.o. feeding. Loose/ Liquified puree diet x 3 meals, large portion of soup L&D and juice x 2 with all meals. Will continue to monitor.
--- NOTE | 2020-09-02 11:00 | NUR ---
Seen and examined by Dr. Arita, he said that he will go home with his GT in place just in case he will need it with his meds administration if unable to swallow them or in case he's unable to eat enough by mouth. Dr. Arita also told patient to go see GI Dr. after 2 weeks to evaluate/ remove GT. Resident expressed understanding.
--- NOTE | 2020-09-02 12:30 | NUR ---
Resident was able to eat about 75% of his lunch. He said he wasn't able to finish all because he's already full. Aspiration precaution observed, no coughing noted while eating, no pain. RD informed of amount of p.o food consumed and made adjustment in his GT bolus feeding and added ensure TID between meals. Will continue to monitor.
--- NOTE | 2020-09-02 14:44 | NUR ---
Pt educated on gt feeding as well as checking for patency and residual before administering feeding. Pt verbalized understanding and did teach back. Pt also informed of infection control while cleaning and changing gtube dressing, verbalized understanding.
--- NOTE | 2020-09-02 15:55 | NUR ---
Paperwork faxed to Valeri/Ania at [phone] as requested by MAVIS Hernandez. Fax confirmation received.
--- NOTE | 2020-09-02 15:58 | NUR ---
MAVIS notified Charge Nurse, Peyton to fax HH order to [facility] lead case manager, JANENE TEL: [phone] FAX: [phone] today by 5 pm. MAVIS provided fax cover & clinicals to Junaid to be faxed along with order & medication list.
[2020-09-02] MEDS: ENSURE ENLIVE CHOC 237 ML CAN GT SCH (16:56)
--- NOTE | 2020-09-02 18:52 | NUR ---
Pt with no adverse reactions at this time. Pt with no acute distress, no complaints. Will continue to monitor.
[2020-09-03] VITALS (7 sets, daily range): BP systolic 108–133; BP diastolic 68–95
[2020-09-03] MEDS: ACETAMINOPHEN 650 MG/20 ML UDC- SA PATIENTS-PAIN ONLY GT SCH ×4 (00:22→18:51)
[2020-09-03] MEDS: CYCLOBENZAPRINE 10 MG TABLET GT SCH ×3 (04:48→21:32)
[2020-09-03] MEDS: oxyCODONE IR immediate release 5 MG GT PRN ×3 (04:49→23:54)
--- NOTE | 2020-09-03 07:08 | NUR ---
S/P Covid-19 vaccine. Pt afebrile and without s/s of any kind of adverse reaction. Injection site no s/s of bleeding or c/o pain at site. Will continue to monitor.
[2020-09-03] MEDS: HYDROGEN PEROXIDE 480 ML BOTTLE TP SCH ×2 (08:31→19:57)
--- NOTE | 2020-09-03 08:56 | NUR ---
MAVIS faxed the pt.'s medication prescription for pt.'s discharge on 09/04/2020 to [facility] TEL:[phone] FAX:[phone]
[2020-09-03] MEDS: ENSURE ENLIVE CHOC 237 ML CAN GT SCH ×3 (09:03→17:00)
[2020-09-03] MEDS: DOCUSATE SODIUM LIQ 100 MG/10 ML UDC GT SCH ×2 (09:03→17:00)
[2020-09-03] MEDS: JEVITY 1.2 CAL 1,000 ML BOTTLE GT SCH ×3 (09:03→17:00)
[2020-09-03] MEDS: FAMOTIDINE (20 MG) 20 MG TABLET GT SCH ×2 (09:03→21:32)
[2020-09-03] MEDS: PROSOURCE / PROSTAT (PYXIS) 30 ML UDC GT SCH ×3 (09:03→17:00)
[2020-09-03] MEDS: LIDOCAINE 5% (PATCH) 1 EA PATCH TP SCH (09:03)
--- NOTE | 2020-09-03 09:52 | NUR ---
Follow up dental apt.: MAVIS called [facility], S Office [phone] [[address] [place] [address]] and scheduled follow up apt. on 09/18/2020 9 AM. MAVIS also requested progress notes from 2 previous appointments. Sheffield state she will fax these over to MAVIS. Addendum: 09/03/20 at 1623 by WILL GAMBLE MAVIS received progress notes from dental office and placed them in the pt.'s chart.
--- NOTE | 2020-09-03 12:30 | NUR ---
Asked to Dr. Carson if there is a plan to decannulate patient since he has been tolerating trach capping. Dr. Carson said that he will evaluate him tomorrow and consider discharging him on Tuesday. SSD and nurse greenhouse manager informed.
--- NOTE | 2020-09-03 16:23 | NUR ---
SS Note: Per Charge nurse, Dr Carson wanted extension of pt.'s last covered date to be on 09/04/2020. SW called case maker, Valeri [phone] and relayed request. Per [facility], the insurance will not approve an LCD extension as the pt. has no skilled need. W relayed information to charge nurse, Vahid. MAVIS will continue to collaborate with IDT to ensure safe & proper discharge planning. MAVIS called [facility] from [facility] to follow up with Home Health order as SW has not received confirmation fo . SW left voicemail and will follow up.
--- NOTE | 2020-09-03 17:00 | NUR ---
Educated patient on how to use GT when getting his gt feeding 3x/day, patient able to do return demonstration on how to use his GT, Proper care, good hand washing before and after GT use. Patient for discharge
--- NOTE | 2020-09-03 17:07 | NUR ---
Informed resident that discharge will be in the afternoon, Dr. Carson will assess him for decannulation in AM. Asked if he is comfortable using GT for feeding. Patient verbalized that he is comfortable administering GT feeding on his own. Explained that if his trach comes off tomorrow it will be covered with a gauze and healing varies. Resident seams excited going home. Explained prescription list to patient, total of four prescription medication that will be filled excluding Oxy IR. OTC medications can be bought in the pharmacy as over the counter medication. Endorsed to incoming shift to prepare supplies for resident to take home.
--- NOTE | 2020-09-03 18:17 | NUR ---
Informed resident's sister Daniel that discharge plan will be in the afternoon after Dr. Carson assess patient for decannulation in the morning. Further explained to Daniel, that prescription is ready at [facility] pharmacy of their choice except for Oxy IR which patient needs to bring the prescription personally before it will be filled. OTC medications listed in the prescription paper can be bought over the counter. Daniel also made aware of patient receiving his second dose of Covid-19 vaccine last Tuesday and vaccination record will be sent with patient upon discharged. Informed Daniel that patient will go home with GT and he will receive supplemental feeding through the GT. Offered to have one on one demonstration/instruction how to administer bolus feeding through GT via Facetime, she said she will do it tomorrow. She is requesting to be called regarding the time patient will be discharged. Endorsed.
[2020-09-04 00:19] VITALS: BP 114/70
[2020-09-04] MEDS: ACETAMINOPHEN 650 MG/20 ML UDC- SA PATIENTS-PAIN ONLY GT SCH ×3 (00:59→12:55)
[2020-09-04 01:27] VITALS: BP 115/70
[2020-09-04] MEDS: CYCLOBENZAPRINE 10 MG TABLET GT SCH ×2 (05:28→12:56)
--- NOTE | 2020-09-04 05:44 | NUR ---
S/P moderna covid vaccination,no s/s of fever and any adverse reaction. Will continue to monitor.
[2020-09-04 06:18] VITALS: BP 110/68
[2020-09-04 07:51] VITALS: BP 99/67
[2020-09-04] MEDS: HYDROGEN PEROXIDE 480 ML BOTTLE TP SCH (08:16)
--- NOTE | 2020-09-04 09:33 | NUR ---
RT NOTE: PATIENT DECANNULATED PER MD ORDER. PLACED GAUZE OVER STOMA. CHARGE NURSE TAD AWARE. NO SOB NOTED. WILL CONTINUE TO MONITOR.
--- NOTE | 2020-09-04 09:35 | NUR ---
Seen by Dr Carson this morning. Pt tolerated trach capping. He ordered to DC trach. RT Akib DC'd pt's trach and pt doing well. No SOB noted. O2 sat 97%. Notified Dr Carson.
[2020-09-04] MEDS: JEVITY 1.2 CAL 1,000 ML BOTTLE GT SCH ×2 (09:54→12:56)
[2020-09-04] MEDS: LIDOCAINE 5% (PATCH) 1 EA PATCH TP SCH (09:54)
[2020-09-04] MEDS: PROSOURCE / PROSTAT (PYXIS) 30 ML UDC GT SCH ×2 (09:54→12:56)
[2020-09-04] MEDS: FAMOTIDINE (20 MG) 20 MG TABLET GT SCH (09:54)
[2020-09-04] MEDS: DOCUSATE SODIUM LIQ 100 MG/10 ML UDC GT SCH (09:54)
[2020-09-04] MEDS: ENSURE ENLIVE CHOC 237 ML CAN GT SCH ×2 (09:54→12:55)
[2020-09-04] MEDS: oxyCODONE IR immediate release 5 MG GT PRN (10:00)
--- NOTE | 2020-09-04 11:15 | NUR ---
MAVIS called pt.s sister, Marge Mejía [phone] and notified her that per Dr. Carson, pt. may be discharged after 1 pm 09/04/2020. 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 MAVIS informed charge nurse, Evelyn.
--- NOTE | 2020-09-04 11:17 | NUR ---
Per Dr Carson, pt may be discharged after 1 pm today. MAVIS Hernandez notified pt's sister.
--- NOTE | 2020-09-04 11:20 | NUR ---
Notified Dr Arita that pt was decannulated and Dr Carson said pt may go home after 1 pm today.
[2020-09-04 12:00] VITALS: BP 113/78
--- NOTE | 2020-09-04 12:50 | NUR ---
Check-in: SW met with pt. bedside to check in regarding his discharge. Pt. stated he is feeling "excited" about going home today. SW explained follow up appointments and HH to be provided. Patient expressed understanding. SW will be available as needed.
[2020-09-04 14:09] VITALS: BP 110/82
--- NOTE | 2020-09-04 15:05 | NUR ---
Pt was picked up by his sister. All discharge instructions discussed with pt and he verbalized understanding. Informed him of follow up appointments with Dr Miller and Dr White. Prescriptions given to pt. Some supplies for trach stoma, GT site care, irrigation tray for GT formula sent with pt. Pt sister also educated on trach stoma and GT site care. Pt expressed appreciation for care provided to him. Notified Dr Arita. Addendum: 09/04/20 at 1653 by ALEXYS FIELD RN MRSA active surveillance done. All belongings sent home with pt.
--- NOTE | 2020-09-04 15:05 | NUR ---
Discharge Note: Pt. was discharged 09/04/2020 at 3 pm and was picked up by pt.s sister, Marge Mejía [phone] and will reside with Marge at [[address] [facility] [address]]. -MAVIS scheduled follow up appointment for pt. with oral surgeon who is following the pt.'s care William Miller DDS [[address] [facility] [address] ] on 09/18/2020 9 AM. -Patient has follow up apt. with his PCP: Dick White ([facility]) on 09/09/2020 2 pm. -Patient was set up with [facility] [phone] [[address] [facility], [address]] and will have eval on 09/05/2020. -Medication to be provided to pt. at [facility] [[address] [place] [address]; ]. SW provide discharge packet & also emailed the above stated information to Marge Mejía at < > MAVIS provided pt. with the following resources and pt. was receptive: ABUSE PREVENTION: Adult Protective Services Hotline COMMUNITY HEALTH ASSOCIATIONS: AARP www.aarp.org ALS Association (ask for Janis) www.als.org M[place]ese Diabetes Association www.diabetes.org M[place]ese Heart Association www.heart.org M[place]ese Lung Association www.lungusa.org Maltese Parkinson Disease Association www.apdaparkinson.org Maltese [place] , www.redcross.org Arthritis Foundation www.arthritis.org Crohns & Colitis Foundation of Maltese www.ccfa.org/chapters/[place]ang[place] National Multiple Sclerosis Society www.nationalmssociety.org Myasthenia Gravis Foundation www.myasthenia-ca.org National Stroke Association www.stroke.org CONSERVATORSHIP & GUARDIANSHIP: AARP Yumiko Andino Legal Services Center for Health Care Rights [facility] Information and Referral Mental Health Aide Foundation [facility]: [facility] Referral Service [facility] Legal Services Office of the Public Guardian [place] GRIEF AND BEREAVEMENT RESOURCES: [place] , [facility] THE [facility] , [facility] , [place] HELP AT HOME CAREGIVER SUPPORT: In Home Support Services (Must have Medi-Sherice to be eligible) *Ask for a list of agencies that provide services to assist with care in the home. Local Senior Centers also have listings of care providers. HOME SAFETY MODIFICATIONS AND EQUIPMENT: Senior centers have additional referrals. [place] Housing and Community Investment Dept. Handyworker Program (low income) or Visit http://hcidla.lifepoint healthity.org/cej-dsrpud-cc for more information National Seating and Mobility and/or ; Forever Active www.foreveractivemed.com Stay Home Safe www.Stayhomesafe.com MEALS AND FOOD PROGRAMS: [place] Meals on Wheels [phone] [place] Meals on Wheels [phone] [facility] [phone] [place] to the Homebound [phone] [place] to the Homebound [phone] [facility] to the Homebound [phone] [facility] to the Homebound [phone] [facility] Su [phone] [facility] [phone] ONE Generation [phone] [facility] [phone] [facility] [phone] Meals on Wheels [phone] For all ages: $6.85/ meal w side. Delivered M-F from 10 am-1pm. Application and payment is done over the phone. Frozen meals available for weekends. Salespush.com Food [facility] [phone] [facility] Operations Officer Afloat [phone] [facility] [phone] [facility]- Brown bag lunches [phone] [facility] [phone] MEAL/GROCERY DELIVERY PROGRAMS: [facility] Gourmet Meals [phone] [facility] [phone]- [facility] Magic Kitchen [phone] Moms Meals [phone] (ask Uribe for Discount Select grocery stores may provide delivery. MEDICAL INSURANCE SUPPORT SERVICES: Center for Health Care Rights [phone] Health Insurance Counseling/Advocacy Programs (HICAP)-Must have Medicare. Offers counseling for Medi-Sherice eligibility [phone] Department of Public Operations Officer Afloat [phone] www.cs.ca.gov Medicare 881-388-0489 www.socialsecurity.org Social Security [phone] TRANSPORTATION: Local [facility] may have applications for transportation programs and additional resources. ACCESS Services [phone] Transportation for seniors and disabled persons 7 days a week requiring 254 hr. advance reservation. Must apply and register for program to be eligible. CITY RIDE 711-936-4954 or [phone] Transportation for seniors and persons with ADA card/metro disabled card in the [facility]. M-F only. Must register for services. ONE GENERATION [phone] Serves 65 years + in conjunction with BannerView.com ride program. Must be registered with both programs. A to B Transport [phone] Provides wheelchair/gurney van service. TRANSPORTATION CONTINUED: Adult Medical Transport [phone] Accepts [facility]-sherice with prior authorization. Care Van [phone] Provides wheelchair Transport. City Wide Transportation [phone] Provides gurney service Gentle Care [phone] Gurney Transport. All Town Transportation [phone] wheelchair & gurney transport [facility] Transportation [phone] wheelchair & gurney transport [place] Non-Emergency Transport [phone] wheelchair & gurney transport [facility] [phone] (Short Term Transportation primarily for adults with disabilities on social security income. Nominal fee may apply and a reservation is required.) [employer] [phone] or [phone] [employer] [phone] [place] [address] Referral Services -[phone] For additional programs & services VETERANS RESOURCES: Submissions for Aid and Attendance should be done directly to [facility] office located at: [address] [facility] [phone] National Caregiver Support Line [phone] [facility] Veterans Services Field Office [phone] [place] Department of [place] Affairs [phone] Pension Information [phone] Mental Health resources provided: [facility] [address] [place] [address] ; [facility] [address], [place] [address] ; [facility] [address] [place] [address] ; [facility] [address] [place] [address] Healthcare Clinics: [facility] [address] [facility] [address], [address] [place]. [place] ; [facility] [address] [place] [address]; [facility] [address] [facility] [phone] Counseling--[facility]patient [facility] [address], [place] [address] (Specializes in in-depth psychotherapy for emotional distress: anxiety, depression, interpersonal conflicts, life transitions, childhood abuse) [facility] [address] [place] [address] (Assist with solving problem marital difficulties, separation & divorce, aging parents, & grief, chronic & terminal illness) [facility] [address] [place] [address] (Deal with loss & grief, anxiety, marital difficulties) Homebound/Mental Health Services [address], [address] [place] [address] (Provide in-home mental services to people who are incapable of leaving their homes) [facility] [address] [place] [address] [facility]: HCP [place] [phone] [address] [facility] [address]
== END 2020-09-04 15:05 | disposition home health service (06) | DRG 189 ==
LOC: SA 18:08
PROVIDERS: ADMIT Internal Medicine; ATTEND Internal Medicine
DX: J96.20 Acute and chronic respiratory failure, unspecified whether with hypoxia or hypercapnia (principal); E46 Unspecified protein-calorie malnutrition; R13.10 Dysphagia, unspecified; W34.00XS Accidental discharge from unspecified firearms or gun, sequela; Z20.822 Contact with and (suspected) exposure to COVID-19; Z93.1 Gastrostomy status; D63.8 Anemia in other chronic diseases classified elsewhere; Z79.51 Long term (current) use of inhaled steroids; Z79.899 Other long term (current) drug therapy; Z87.81 Personal history of (healed) traumatic fracture
CPT/HCPCS: 31720; 36415; 72110-TC; 72132-TC; 80048-TC; 85025-TC; 86580-TC; 87081-TC; 92507-TC; 92521; 92526; 92611-TC; 94760-TC; 94761-TC; 94799-TC; 97112-TC; 97116-TC; 97530-TC; A4623; A7526; J1650; J2310; J3490; L8501; Q9967; U0003